=== PATIENT | female | born 1970 | race Caucasian/White ===

== ENCOUNTER 2019-02-22 08:00 | Inpatient (IN) | payer OTHER ==
[2019-02-24 07:11] VITALS: BMI 34.4
[2019-02-24] MEDS ORDERED: DESFLURANE GAS 240 ML BOTTLE IH ONE (07:46)
[2019-02-24] MEDS ORDERED: VANCOMYCIN 1,000 MG VIAL (RESTRICTED TO ID ONLY) ONE ×2 (07:59→09:19)
[2019-02-24] MEDS ORDERED: GENTAMICIN SO4 80 MG/2 ML VIAL ONE (07:59)
[2019-02-24] MEDS ORDERED: THROMBIN (BOVINE) 20,000 UNIT VIAL TP ONE (07:59)
--- NOTE | 2019-02-24 08:01 | HP ---
History & Physical Update - History History: No Change - Physical Physical: No Change - Assessment Assessment: No Change - Plan Plan: No Change (No change since visit with Dr Nelson on 02/18/19)
[2019-02-24] MEDS ORDERED: PROPOFOL 20 ML ONE ×3 (08:08→08:49)
[2019-02-24] MEDS ORDERED: MIDAZOLAM HCL 2 MG/2 ML SINGLE DOSE VIAL ONE (08:08)
[2019-02-24] MEDS ORDERED: ROCURONIUM BROMIDE 50 MG/5 ML VIAL ONE ×2 (08:08→09:36)
[2019-02-24] MEDS ORDERED: LIDOCAINE HCL/PF 2% SDV 5ML VIAL ONE ×2 (08:09→08:50)
[2019-02-24] MEDS ORDERED: SCOPOLAMINE HYDROBROMIDE 1 PATCH PATCH.TD72 ONE (08:10)
[2019-02-24] MEDS ORDERED: DEXAMETHASONE SOD PHOSPHATE 4 MG/1 ML VIAL IVPUSH ONE (08:13)
[2019-02-24] MEDS ORDERED: PROMETHAZINE HCL 25 MG/1 ML VIAL IVPB PRN (08:13)
[2019-02-24] MEDS ORDERED: LACTATED RINGERS SOLUTION 1,000 ML IV SCH (08:15)
[2019-02-24] MEDS ORDERED: HYDROmorphone *PCA* 10MG/50ML DISP.SYRIN PCA SCH (08:15)
[2019-02-24] MEDS ORDERED: MORPHINE 5 MG/10 ML AMP - FOR COMPOUNDING USE ONLY ONE (08:37)
[2019-02-24] MEDS ORDERED: SODIUM CHLORIDE 0.9% P/F 10 ML VIAL IJ ONE ×2 (09:13→09:19)
[2019-02-24] MEDS ORDERED: ceFAZolin SODIUM 1 GM VIAL ONE ×2 (09:13→17:19)
[2019-02-24] MEDS ORDERED: ceFAZolin SODIUM 1 GM VIAL IVPB ONE (09:18)
[2019-02-24] MEDS ORDERED: DEXAMETHASONE SOD PHOSPHATE 4 MG/1 ML VIAL ONE (09:20)
[2019-02-24] MEDS ORDERED: ONDANSETRON 4 MG/2 ML VIAL ONE ×2 (09:20→17:29)
[2019-02-24] MEDS ORDERED: VANCOMYCIN 1,000 MG VIAL (RESTRICTED TO ID ONLY) IVPB ONE (09:22)
[2019-02-24] MEDS ORDERED: GELATIN, ABSORBABLE 12-7MM EACH SPONGE TP ONE (09:31)
[2019-02-24] MEDS ORDERED: HYDROGEN PEROXIDE 473 ML PO ONE (09:31)
[2019-02-24] MEDS ORDERED: BACITRACIN 50,000 UNITS VIAL TP ONE (09:31)
[2019-02-24] MEDS ORDERED: THROMBIN (BOVINE) 5,000 UNIT VIAL TP ONE (09:31)
[2019-02-24] MEDS ORDERED: GENTAMICIN SO4 80 MG/2 ML VIAL IVPB ONE (09:31)
[2019-02-24] MEDS ORDERED: BUPIVACAINE HCL/PF 0.5% (5MG/ML) 10 ML VIAL ONE (10:31)
[2019-02-24] MEDS ORDERED: BUPIVACAINE LIPOSOME/PF (EXPAREL) 266 MG/20 ML VIAL ONE (10:31)
[2019-02-24] MEDS ORDERED: BUPIVACAINE LIPOSOME/PF (EXPAREL) 266 MG/20 ML VIAL NR ONE (11:04)
[2019-02-24] MEDS ORDERED: BUPIVACAINE HCL/PF 0.5% (5MG/ML) 10 ML VIAL IJ ONE (11:05)
[2019-02-24] MEDS ORDERED: NEOSTIGMINE METHYLSULFATE 0.5 MG/1 ML - 10 ML MDV ONE (11:28)
[2019-02-24] MEDS ORDERED: GLYCOPYRROLATE 0.2 MG/1 ML VIAL ONE (11:28)
[2019-02-24] MEDS ORDERED: diphenhydrAMINE HCL 25 MG CAPSULE (FP) PO PRN (12:27)
[2019-02-24] MEDS ORDERED: ACETAMINOPHEN 325 MG TABLET (FP) PO PRN (12:46)
--- NOTE | 2019-02-24 13:01 | OP ---
Operative Note - Note: Operative Date: 02/24/19 Pre-Operative Diagnosis: thoracic Spondylosis T11-T12 Operation: T11-T12 laminectomies with T11-T12 costoveterbral/transpedicular decompression and T11-T12 fusion with pedicle screws Post-Operative Diagnosis: Same as Pre-op Surgeon: Bryson Doyle Hot Mill Worker: Suly Babb Anesthesiologist/CLOTH PRINTER HELPER: Dae Stapleton Anesthesia: General, Spinal, Local Estimated Blood Loss (mls): 150 Drains & Tubes with Location: INOCENCIO right lumbar paravertebral Drains, Volume Out (mls): 300 (batres) Fluid Volume Replaced (mls): 1,500 Operative Report Dictated: Yes
[2019-02-24] MEDS ORDERED: HYDROmorphone *PCA* 10MG/50ML DISP.SYRIN PCA ONE (13:37)
--- NOTE | 2019-02-24 15:01 | HP ---
Admitting History and Physical - Admission Chief Complaint: came in for back surgery History of Present Illness: 48 yr old female saw her PMD on 02/18/19 came in for back surgery had MRI done last month show t11-t12 disc herniation with mass effect. PMH of HLD History Source: Medical Record - Past Medical History Cardiovascular: Yes: HTN, Hyperlipdemia ...LMP: 12/17/18 - Smoking History Smoking history: Never smoked - Alcohol/Substance Use Hx Alcohol Use: No (RARELY) Home Medications - Allergies Allergies/Adverse Reactions: Allergies Allergy/AdvReac Type Severity Reaction Status Date / Time No Known Drug Allergies Allergy Verified 02/23/19 14:54 - Home Medications Home Medications: Ambulatory Orders Rosuvastatin Calcium [Crestor] 5 mg PO DAILY 04/10/16 Ergocalciferol (Vitamin D2) [Vitamin D2] 50,000 unit PO WEEKLY 02/23/19 Review of Systems Unable to obtain ROS, reason: sleepy Physical Examination Vital Signs: Vital Signs Temperature 98.1 F 02/24/19 12:15 Pulse Rate 100 H 02/24/19 14:00 Respiratory Rate 18 02/24/19 14:00 Blood Pressure 145/81 02/24/19 14:00 O2 Sat by Pulse Oximetry (%) 99 02/24/19 14:00 patient seen in PACU after surgery she is sleepy able to respond to her name Constitutional: Yes: Calm Cardiovascular: Yes: Regular Rate and Rhythm, S1, S2 Respiratory: Yes: CTA Bilaterally Gastrointestinal: Yes: Normal Bowel Sounds, Soft Musculoskeletal: Yes: Other (INOCENCIO drain with red serosanginous drainage) Edema: No Neurological: Yes: Alert, Oriented Problem List - Problems (1) Thoracic lordosis Assessment/Plan: Operation: T11-T12 laminectomies with T11-T12 costoveterbral/transpedicular decompression and T11-T12 fusion with pedicle screws dilaudid organ teacher dvt ppx stool sfotner iv abx labs IN AM repeat thoracic ct ordered post op Code(s): M40.55 - LORDOSIS, UNSPECIFIED, THORACOLUMBAR REGION (2) HLD (hyperlipidemia) Assessment/Plan: crestor 5mg Code(s): E78.5 - HYPERLIPIDEMIA, UNSPECIFIED
[2019-02-24] MEDS: LACTATED RINGERS SOLUTION 1,000 ML/1,000 ML INFUS.BAG IV SCH (15:46)
[2019-02-24] MEDS ORDERED: CEFAZOLIN 1 GM in DEXTROSE 5%-WATER - 50 ML IVPB SCH (17:00)
[2019-02-24] MEDS: ONDANSETRON 4 MG/2 ML VIAL IVPUSH PRN (17:30)
[2019-02-24] MEDS ORDERED: CEFAZOLIN 2 GM in DEXTROSE 5%-WATER - 100 ML IVPB ONE (18:10)
[2019-02-24] MEDS ORDERED: CEFAZOLIN 2 GM/D5W 2 GM/50 ML ML IVPB ONE (18:23)
[2019-02-24] MEDS: DOCUSATE SODIUM 100 MG CAPSULE (FP) PO SCH ×2 (18:58→21:30)
[2019-02-24] MEDS: HEPARIN NA (PORCINE) 5,000 UNITS/ML 1ML VIAL SQ SCH (21:30)
[2019-02-25] MEDS: CEFAZOLIN 1 GM/D5W 1 GM/50 ML BAG IVPB SCH ×3 (01:26→18:07)
[2019-02-25] MEDS: HEPARIN NA (PORCINE) 5,000 UNITS/ML 1ML VIAL SQ SCH ×3 (05:29→21:27)
[2019-02-25] MEDS: DOCUSATE SODIUM 100 MG CAPSULE (FP) PO SCH ×3 (05:29→21:27)
[2019-02-25 06:39] LABS: HEMATOCRIT 31.4 % (32.4-45.2); HEMOGLOBIN 10.6 GM/dL (10.7-15.3); MCHC 33.8 g/dl (32.0-36.0); MEAN CELL VOLUME 91.8 fl (80-96); MEAN PLT VOLUME 8.2 fl (7.5-11.1); PLATELET COUNT 206 K/MM3 (134-434); RBC 3.42 M/mm3 (3.60-5.2); RDW 13.9 % (11.6-15.6); WHITE BLOOD COUNT 15.3 K/mm3 (4.0-10.0)
[2019-02-25 07:22] LABS: CALCIUM 8.3 mg/dL (8.5-10.1); CREATININE 0.9 mg/dL (0.55-1.3)
--- NOTE | 2019-02-25 08:05 | PN ---
Progress Note (short form) - Note Progress Note: Post op day#1.S/P T11-T12 posterior decompression with fusion under GA with intrathical duramorph and TLIP block by the surgeon uneventful.Patient stable and does not /o pain as of now.No any anesthesia related problem.Patient Dc from the anesthesia care.
[2019-02-25] MEDS: FOLIC ACID 1 MG TABLET (FP) PO SCH (10:21)
[2019-02-25] MEDS: FERROUS SO4 325 MG TABLET (FP) PO SCH ×2 (10:21→10:50)
--- NOTE | 2019-02-25 10:24 | PN ---
Progress Note (short form) - Note Progress Note: POD1, s/p T11-T12 laminectomies with T11-T12 costoveterbral/transpedicular decompression and T11-T12 fusion with pedicle screws Pt seen and examined. States she is feeling "Okay". Endorses some pain with movement. Has not been oob yet. Tolerating clears. Lang removed this AM. Drain in place. Denies cp/sob, n/v/d, calf pain. Vital Signs Temp 98.3 F 02/25/19 06:00 Pulse 66 02/25/19 06:00 Resp 18 02/25/19 06:00 BP 110/66 02/25/19 06:00 Pulse Ox 98 02/24/19 21:00 Intake & Output 02/24/19 02/24/19 02/25/19 11:59 23:59 11:59 Intake Total 1500 1745 1105 Output Total 475 1225 460 Balance 1025 520 645 Intake: IV 1500 1625 875 LACTATED RINGERS SOLUTION 625 875 1,000 ml In 1,000 ml @ 125 mls/hr IV ASDIR CLAIRE Rx#:[id number] IVPB 50 Oral 120 180 Output: Drainage 125 60 Right Lower Back 50 60 Urine 325 1100 400 Lang 400 400 Estimated Blood Loss 150 Other: Voiding Method Indwelling Catheter Bedpan Bowel Movement No No CBC, BMP 02/25/19 06:00 02/25/19 06:00 Gen: awake, alert, nad Resp: Unlabored on RA Back: dressing c/d/i, drain in place with minimal serosanguinous output, tubing stripped. Neuro: b/l le's 5/5 dorsi/plantar flexion, 5/5 hip flex/ext. SILT b/l les. Feet warm A/P: 48 y/o F w/ PMHx hld, thoracic spondylosis, now POD1, s/p T11-T12 laminectomies with T11-T12 costoveterbral/transpedicular decompression and T11- T12 fusion with pedicle screws. Low grade fever overnight (99.9), remainder of VSS Labs reviewed. Alexey output 60ml overnight -Pain regimen with Oxycodone 5/10mg q4hrs prn, Ofirmev 1g q6hrs scheduled, Dilaudid 1mg q6hrs prn BTP -TOV, Check bladder scan after 1st void -Keep drain in place, monitor and record output -Continue Ancef 1g q8hrs while drain in place -DVT prophylaxis with Heparin 5000units sq q8hrs, scds -OOB with PT -Bowel regimen -Advance diet as tolerated -VS per protocol -Neurochecks per protocol d/w attending Dr Cerda
[2019-02-25] MEDS: ACETAMINOPHEN 1000 MG/100 ML VIAL (NON FORMULARY) IVPB SCH ×3 (10:41→21:27)
--- NOTE | 2019-02-25 10:44 | PN ---
Progress Note (short form) - Note Progress Note: Overall doing reasonably well. INOCENCIO output as expected. - OOB with PT - Incentive Spirometer - Check post void residual - Pain management
[2019-02-25] MEDS: RANITIDINE HCL 150 MG TABLET (FP) PO PRN (10:49)
[2019-02-25] MEDS ORDERED: oxyCODONE HCL 5 MG TABLET PO PRN (11:00)
[2019-02-25] MEDS ORDERED: HYDROmorphone HCL/PF 1 MG/ML AMP IVPB PRN (11:50)
--- NOTE | 2019-02-25 12:07 | PN ---
Progress Note, Physician Chief Complaint: patient seen and examined feels better today sat in chair - Current Medication List Current Medications: Active Medications Acetaminophen (Tylenol -) 1,000 mg PO Q6H PRN PRN Reason: PAIN OR FEVER Acetaminophen (Ofirmev Injection -) 1,000 mg IVPB Q6H [facility] Stop: 02/26/19 04:16 Last Admin: 02/25/19 10:41 Dose: 1,000 mg Diphenhydramine HCl (Benadryl -) 25 mg PO Q6H PRN PRN Reason: FOR ITCHING Last Admin: 02/25/19 04:11 Dose: 25 mg Docusate Sodium (Colace -) 100 mg PO TID [facility] Last Admin: 02/25/19 05:29 Dose: 100 mg Ferrous Sulfate (Feosol -) 325 mg PO DAILY@0800 [facility] Last Admin: 02/25/19 10:50 Dose: Not Given Folic Acid (Folic Acid -) 1 mg PO DAILY [facility] Last Admin: 02/25/19 10:21 Dose: 1 mg Heparin Sodium (Porcine) (Heparin -) 5,000 unit SQ TID [facility] Last Admin: 02/25/19 05:29 Dose: 5,000 unit Hydromorphone HCl (Dilaudid Amp -) 1 mg IVPB Q6H PRN PRN Reason: PAIN LEVEL 7 - 10 Lactated Ringer's (Lactated Ringers Solution) 1,000 ml in 1,000 mls @ 125 mls/ hr IV ASDIR [facility] Last Admin: 02/24/19 15:46 Dose: 400 mls Cefazolin Sodium (Ancef 1 Gm Premixed Ivpb -) 1 gm in 50 mls @ 100 mls/hr IVPB Q8H-IV [facility] Last Admin: 02/25/19 10:22 Dose: 100 mls/hr Ondansetron HCl (Zofran Injection) 4 mg IVPUSH Q4H PRN PRN Reason: NAUSEA AND/OR VOMITING Last Admin: 02/24/19 17:30 Dose: 4 mg Oxycodone HCl (Roxicodone -) 5 mg PO Q4H PRN PRN Reason: PAIN LEVEL 1-5 Oxycodone HCl (Roxicodone -) 10 mg PO Q4H PRN PRN Reason: PAIN LEVEL 6-10 Ranitidine HCl (Zantac -) 150 mg PO DAILY PRN PRN Reason: INDIGESTION Last Admin: 02/25/19 10:49 Dose: 150 mg - Objective Vital Signs: Vital Signs Temperature 98.5 F 02/25/19 10:00 Pulse Rate 62 02/25/19 10:00 Respiratory Rate 18 02/25/19 10:00 Blood Pressure 108/66 02/25/19 10:00 O2 Sat by Pulse Oximetry (%) 98 02/24/19 21:00 Constitutional: Yes: Calm Cardiovascular: Yes: Regular Rate and Rhythm, S1, S2 Respiratory: Yes: CTA Bilaterally Gastrointestinal: Yes: Normal Bowel Sounds, Soft Musculoskeletal: Yes: Other (drain with drainage) Edema: No Labs: CBC, BMP 02/25/19 06:00 02/25/19 06:00 Problem List - Problems (1) Thoracic lordosis Assessment/Plan: Operation: T11-T12 laminectomies with T11-T12 costoveterbral/transpedicular decompression and T11-T12 fusion with pedicle screws dvt ppx stool sfotner incentive spirometer Code(s): M40.55 - LORDOSIS, UNSPECIFIED, THORACOLUMBAR REGION (2) HLD (hyperlipidemia) Assessment/Plan: crestor 5mg Code(s): E78.5 - HYPERLIPIDEMIA, UNSPECIFIED
[2019-02-25] MEDS ORDERED: SUMAtriptan SUCCINATE 25 MG TABLET PO PRN (13:33)
[2019-02-25] MEDS: oxyCODONE HCL 5 MG TABLET PO PRN (14:41)
[2019-02-25] MEDS: LACTATED RINGERS SOLUTION 1,000 ML/1,000 ML INFUS.BAG IV SCH (14:46)
[2019-02-25] MEDS: HYDROmorphone HCl 2 MG/ML VIAL IVPB PRN (19:01)
[2019-02-26] MEDS: HYDROmorphone HCl 2 MG/ML VIAL IVPB PRN ×2 (02:09→21:09)
[2019-02-26] MEDS: CEFAZOLIN 1 GM/D5W 1 GM/50 ML BAG IVPB SCH ×3 (02:10→17:53)
[2019-02-26] MEDS: ACETAMINOPHEN 1000 MG/100 ML VIAL (NON FORMULARY) IVPB SCH (05:35)
[2019-02-26] MEDS: oxyCODONE HCL 5 MG TABLET PO PRN ×2 (05:36→11:08)
[2019-02-26] MEDS: HEPARIN NA (PORCINE) 5,000 UNITS/ML 1ML VIAL SQ SCH ×3 (05:36→21:10)
[2019-02-26] MEDS: DOCUSATE SODIUM 100 MG CAPSULE (FP) PO SCH ×3 (05:37→21:10)
[2019-02-26] MEDS: FERROUS SO4 325 MG TABLET (FP) PO SCH (08:53)
[2019-02-26] MEDS: FOLIC ACID 1 MG TABLET (FP) PO SCH (10:26)
[2019-02-26] MEDS: LACTATED RINGERS SOLUTION 1,000 ML/1,000 ML INFUS.BAG IV SCH ×2 (10:27→21:10)
--- NOTE | 2019-02-26 10:46 | PN ---
Progress Note, Physician - Current Medication List Current Medications: Active Medications Acetaminophen (Tylenol -) 1,000 mg PO Q6H PRN PRN Reason: PAIN OR FEVER Diphenhydramine HCl (Benadryl -) 25 mg PO Q6H PRN PRN Reason: FOR ITCHING Last Admin: 02/25/19 04:11 Dose: 25 mg Docusate Sodium (Colace -) 100 mg PO TID [facility] Last Admin: 02/26/19 05:37 Dose: 100 mg Ferrous Sulfate (Feosol -) 325 mg PO DAILY@0800 [facility] Last Admin: 02/26/19 08:53 Dose: 325 mg Folic Acid (Folic Acid -) 1 mg PO DAILY [facility] Last Admin: 02/26/19 10:26 Dose: 1 mg Heparin Sodium (Porcine) (Heparin -) 5,000 unit SQ TID [facility] Last Admin: 02/26/19 05:36 Dose: 5,000 unit Hydromorphone HCl (Dilaudid Vial -) 1 mg IVPB Q6H PRN PRN Reason: PAIN LEVEL 7 - 10 Last Admin: 02/26/19 02:09 Dose: 1 mg Lactated Ringer's (Lactated Ringers Solution) 1,000 ml in 1,000 mls @ 125 mls/ hr IV ASDIR [facility] Last Admin: 02/26/19 10:27 Dose: 125 mls/hr Cefazolin Sodium (Ancef 1 Gm Premixed Ivpb -) 1 gm in 50 mls @ 100 mls/hr IVPB Q8H-IV [facility] Last Admin: 02/26/19 10:27 Dose: 100 mls/hr Ondansetron HCl (Zofran Injection) 4 mg IVPUSH Q4H PRN PRN Reason: NAUSEA AND/OR VOMITING Last Admin: 02/24/19 17:30 Dose: 4 mg Oxycodone HCl (Roxicodone -) 5 mg PO Q4H PRN PRN Reason: PAIN LEVEL 1-5 Oxycodone HCl (Roxicodone -) 10 mg PO Q4H PRN PRN Reason: PAIN LEVEL 6-10 Last Admin: 02/26/19 05:36 Dose: 10 mg Ranitidine HCl (Zantac -) 150 mg PO DAILY PRN PRN Reason: INDIGESTION Last Admin: 02/25/19 10:49 Dose: 150 mg Sumatriptan Succinate (Imitrex -) 25 mg PO DAILY PRN PRN Reason: HEADACHE - Objective Vital Signs: Vital Signs Temperature 98.6 F 02/26/19 06:00 Pulse Rate 79 02/26/19 06:00 Respiratory Rate 18 02/26/19 06:00 Blood Pressure 136/79 02/26/19 06:00 O2 Sat by Pulse Oximetry (%) 96 02/25/19 20:42 Cardiovascular: Yes: Regular Rate and Rhythm, Murmur Respiratory: Yes: Regular, CTA Bilaterally Gastrointestinal: Yes: Normal Bowel Sounds, Soft Edema: No Labs: CBC, BMP 02/25/19 06:00 02/25/19 06:00 Problem List - Problems (1) Dizziness Assessment/Plan: labs patient monitor Code(s): R42 - DIZZINESS AND GIDDINESS (2) HLD (hyperlipidemia) Assessment/Plan: statin Code(s): E78.5 - HYPERLIPIDEMIA, UNSPECIFIED (3) Thoracic lordosis Assessment/Plan: Operation: T11-T12 laminectomies with T11-T12 costoveterbral/transpedicular decompression and T11-T12 fusion with pedicle screws dvt ppx stool sfotner incentive spirometer Code(s): M40.55 - LORDOSIS, UNSPECIFIED, THORACOLUMBAR REGION (4) Murmur Assessment/Plan: echo --maybe done as outpatient Code(s): R01.1 - CARDIAC MURMUR, UNSPECIFIED
[2019-02-26 12:03] LABS: BASO % 0.3 % (0-2.0); EOS % 1.3 % (0-4.5); HEMATOCRIT 32.4 % (32.4-45.2); HEMOGLOBIN 10.8 GM/dL (10.7-15.3); LYMPH % 17.6 % (8-40); MCHC 33.4 g/dl (32.0-36.0); MEAN CELL VOLUME 92.7 fl (80-96); MEAN PLT VOLUME 8.3 fl (7.5-11.1); NEUT % 72.8 % (42.8-82.8); PLATELET COUNT 182 K/MM3 (134-434); RDW 14.1 % (11.6-15.6); WHITE BLOOD COUNT 11.4 K/mm3 (4.0-10.0)
[2019-02-26 12:27] LABS: ALBUMIN 3.2 g/dl (3.4-5.0); ALK PHOS 81 U/L (45-117); ANION GAP 5 MMOL/L (8-16); BILIRUBIN,TOTAL 0.6 mg/dL (0.2-1); BLOOD UREA NITROGEN 6 mg/dL (7-18); CALCIUM 7.7 mg/dL (8.5-10.1); CHLORIDE 102 mmol/L (98-107); CO2 30 mmol/L (21-32); CREATININE 0.8 mg/dL (0.55-1.3); GLUCOSE,RANDOM 107 mg/dL (74-106); POTASSIUM 3.6 mmol/L (3.5-5.1); SGOT/AST 97 U/L (15-37); SGPT/ALT 117 U/L (13-61); SODIUM 137 mmol/L (136-145); TOT PROT 5.5 g/dl (6.4-8.2)
[2019-02-26] MEDS: ONDANSETRON 4 MG/2 ML VIAL IVPUSH PRN ×2 (17:54→21:15)
[2019-02-27] MEDS: oxyCODONE HCL 5 MG TABLET PO PRN (00:53)
[2019-02-27] MEDS: CEFAZOLIN 1 GM/D5W 1 GM/50 ML BAG IVPB SCH ×3 (01:06→17:01)
[2019-02-27] MEDS: HYDROmorphone HCl 2 MG/ML VIAL IVPB PRN (04:19)
[2019-02-27] MEDS: HEPARIN NA (PORCINE) 5,000 UNITS/ML 1ML VIAL SQ SCH ×3 (05:29→21:32)
[2019-02-27] MEDS: DOCUSATE SODIUM 100 MG CAPSULE (FP) PO SCH ×3 (05:30→21:32)
[2019-02-27] MEDS: ONDANSETRON 4 MG/2 ML VIAL IVPUSH PRN (05:56)
[2019-02-27] MEDS: RANITIDINE HCL 150 MG TABLET (FP) PO PRN (08:38)
[2019-02-27] MEDS: FERROUS SO4 325 MG TABLET (FP) PO SCH (08:39)
[2019-02-27] MEDS ORDERED: PT OWN MED DRAWER 7, Y5N ONE (09:22)
[2019-02-27] MEDS: FOLIC ACID 1 MG TABLET (FP) PO SCH (09:24)
[2019-02-27] MEDS ORDERED: ONDANSETRON 4 MG/2 ML VIAL IVPUSH PRN (09:55)
--- NOTE | 2019-02-27 09:55 | PN ---
Progress Note, Physician History of Present Illness: C/O NAUSEA NO ABD PAIN NUMBNESS OF RIGHT LEG BUT NO WEAKNESS - Current Medication List Current Medications: Active Medications Acetaminophen (Tylenol -) 1,000 mg PO Q6H PRN PRN Reason: PAIN OR FEVER Diphenhydramine HCl (Benadryl -) 25 mg PO Q6H PRN PRN Reason: FOR ITCHING Last Admin: 02/25/19 04:11 Dose: 25 mg Docusate Sodium (Colace -) 100 mg PO TID [facility] Last Admin: 02/27/19 05:30 Dose: 100 mg Ferrous Sulfate (Feosol -) 325 mg PO DAILY@0800 [facility] Last Admin: 02/27/19 08:39 Dose: Not Given Folic Acid (Folic Acid -) 1 mg PO DAILY [facility] Last Admin: 02/27/19 09:24 Dose: 1 mg Heparin Sodium (Porcine) (Heparin -) 5,000 unit SQ TID [facility] Last Admin: 02/27/19 05:29 Dose: 5,000 unit Lactated Ringer's (Lactated Ringers Solution) 1,000 ml in 1,000 mls @ 125 mls/ hr IV ASDIR [facility] Last Admin: 02/26/19 21:10 Dose: Not Given Cefazolin Sodium (Ancef 1 Gm Premixed Ivpb -) 1 gm in 50 mls @ 100 mls/hr IVPB Q8H-IV [facility] Last Admin: 02/27/19 09:23 Dose: 100 mls/hr Oxycodone HCl (Roxicodone -) 5 mg PO Q4H PRN PRN Reason: PAIN LEVEL 1-5 Oxycodone HCl (Roxicodone -) 10 mg PO Q4H PRN PRN Reason: PAIN LEVEL 6-10 Last Admin: 02/27/19 00:53 Dose: 10 mg Ranitidine HCl (Zantac -) 150 mg PO DAILY PRN PRN Reason: INDIGESTION Last Admin: 02/27/19 08:38 Dose: 150 mg Sumatriptan Succinate (Imitrex -) 25 mg PO DAILY PRN PRN Reason: HEADACHE - Objective Vital Signs: Vital Signs Temperature 99.0 F 02/27/19 05:08 Pulse Rate 78 02/27/19 05:08 Respiratory Rate 20 02/27/19 05:08 Blood Pressure 132/82 02/27/19 05:08 O2 Sat by Pulse Oximetry (%) 94 L 02/26/19 21:00 Cardiovascular: Yes: Regular Rate and Rhythm Respiratory: Yes: Regular, CTA Bilaterally Gastrointestinal: Yes: Normal Bowel Sounds, Soft. No: Tenderness Edema: No Labs: CBC, BMP 02/26/19 11:20 02/26/19 11:20 Problem List - Problems (1) Dizziness Assessment/Plan: RESOLVED labs NOTED ekg NSR monitor NO ARRYTHMIA Code(s): R42 - DIZZINESS AND GIDDINESS (2) HLD (hyperlipidemia) Assessment/Plan: statin Code(s): E78.5 - HYPERLIPIDEMIA, UNSPECIFIED (3) Thoracic lordosis Assessment/Plan: Operation: T11-T12 laminectomies with T11-T12 costoveterbral/transpedicular decompression and T11-T12 fusion with pedicle screws dvt ppx stool sfotner incentive spirometer PARESTHESIA NS FOLLOW UP Code(s): M40.55 - LORDOSIS, UNSPECIFIED, THORACOLUMBAR REGION (4) Murmur Assessment/Plan: echo --maybe done as outpatient Code(s): R01.1 - CARDIAC MURMUR, UNSPECIFIED (5) Nausea Assessment/Plan: MAYBE DUE TO ANESTHESIA AND PAIN MEDS ZOFRAN Code(s): R11.0 - NAUSEA
[2019-02-27] MEDS: PANTOPRAZOLE SODIUM 40 MG VIAL IVPUSH SCH (10:50)
[2019-02-27] MEDS ORDERED: SODIUM PHOSPHATE/NA BIPHOS 133 ML ENEMA RC ONE (11:00)
--- NOTE | 2019-02-27 12:32 | EKG ---
Test Reason : Blood Pressure : / mmHG Vent. Rate : 072 BPM Atrial Rate : 072 BPM P-R Int : 144 ms QRS Dur : 086 ms QT Int : 394 ms P-R-T Axes : 036 013 008 degrees QTc Int : 431 ms NORMAL SINUS RHYTHM NORMAL ECG WHEN COMPARED WITH ECG OF 11-FEB-2010 10:34, NO SIGNIFICANT CHANGE WAS FOUND Confirmed by ALISTAIR WILCOX MD ([id number]) on 02/27/2019 12:31:58 PM Referred By: Bryson Doyle Confirmed By:ALISTAIR WILCOX MD
[2019-02-27] MEDS: ACETAMINOPHEN 500 MG TABLET (FP) PO PRN ×2 (15:40→21:32)
[2019-02-28] MEDS ORDERED: oxyCODONE HCL 5 MG TABLET PO ONE (01:15)
[2019-02-28] MEDS ORDERED: ACETAMINOPHEN 325 MG TABLET (FP) PO ONE (01:15)
[2019-02-28] MEDS: CEFAZOLIN 1 GM/D5W 1 GM/50 ML BAG IVPB SCH ×3 (01:23→18:07)
[2019-02-28] MEDS: HEPARIN NA (PORCINE) 5,000 UNITS/ML 1ML VIAL SQ SCH ×3 (05:43→21:13)
[2019-02-28] MEDS: DOCUSATE SODIUM 100 MG CAPSULE (FP) PO SCH ×3 (05:43→21:13)
[2019-02-28] MEDS: ACETAMINOPHEN 500 MG TABLET (FP) PO PRN ×2 (05:48→23:47)
--- NOTE | 2019-02-28 08:24 | PN ---
Progress Note (short form) - Note Progress Note: surgery POD #4 T11-T12 laminectomies with T11-T12 costoveterbral/transpedicular decompression and T11-T12 fusion with pedicle screws Patient seen and examined at bed still c/o b/l LE radicular pain in hips and thighs> LE, R>L, She has been OOB with PT and ambulating to the door. She is tolerating her diet, voiding and denies any CP, SOB, N/V, fever or chills. She denies any saddle anesthesia or groin pain. CBC, BMP 02/28/19 10:56 Vital Signs Temp 98.2 F 02/28/19 06:00 Pulse 71 02/28/19 06:00 Resp 20 02/28/19 06:00 BP 140/56 L 02/28/19 06:00 Pulse Ox 96 02/27/19 21:00 Intake & Output 02/27/19 02/27/19 02/28/19 11:59 23:59 11:59 Intake Total 995 900 50 Output Total 1050 1840 Balance -55 -940 50 Intake: IV 825 500 LACTATED RINGERS SOLUTION 825 500 1,000 ml In 1,000 ml @ 125 mls/hr IV ASDIR CLAIRE Rx#:[id number] IVPB 50 100 50 Oral 120 300 Output: Drainage 40 Right Lower Back 40 Urine 1050 1800 Void 1050 1800 Other: Voiding Method Bedside Commode Bedside Commode # Unmeasured Voids Straight Cath 4 Void 1 Bowel Movement Yes Yes # Bowel Movements 2 PE: A&ox3, NAD unlabored resp on RA Incision c/d/i with surrounding tissue intact- small linear skin tear right lumbar paravetebral area where tegaderm was (versitlie placed), no tracking erythema, edema, evidence of collection or d/c, INOCENCIO drain removed with tip fully intact, drain site clean and dry with no active d/c-pressure dressing applied B/L LE compartments soft, supple and non-tender with +DP pulses and 5/5 dorsi/ plantar flexion b/l LE Problem List - Problems (1) S/P fusion of thoracic spine Assessment/Plan: POD #4 thoracic decompression and fusion with b/l LE radiculopathy R>L- appropriate to status. 1) Focus on PT today-rehab vs home. will follow PT recommendations 2) Continue DVT prophylaxis 3) OOB as tolerated up to chair for meals 4) Encourage daily IS 5) D/c planning for today 6) Good bowel regimen Evaluation and plan discussed with Dr Doyle Code(s): Z98.1 - ARTHRODESIS STATUS
[2019-02-28] MEDS: traMADol HCL 50 MG TABLET PO PRN ×3 (09:19→21:13)
[2019-02-28] MEDS: PANTOPRAZOLE SODIUM 40 MG VIAL IVPUSH SCH (09:22)
[2019-02-28] MEDS ORDERED: SENNOSIDES/DOCUSATE COMBO (SENNA PLUS) TABLET (UD) PO PRN (10:47)
--- NOTE | 2019-02-28 10:49 | DS ---
"Physical Examination Vital Signs: Vital Signs Temperature 98.2 F 02/28/19 06:00 Pulse Rate 71 02/28/19 06:00 Respiratory Rate 20 02/28/19 06:00 Blood Pressure 140/56 L 02/28/19 06:00 O2 Sat by Pulse Oximetry (%) 96 02/27/19 21:00 Constitutional: Yes: Calm Cardiovascular: Yes: Regular Rate and Rhythm, S1, S2 Respiratory: Yes: CTA Bilaterally Gastrointestinal: Yes: Normal Bowel Sounds, Soft Edema: No Neurological: Yes: Alert, Oriented Labs: CBC, BMP 02/26/19 11:20 02/26/19 11:20 Discharge Summary Reason For Visit: THORACIC SPONDYLOSIS Current Active Problems Dizziness (Acute) HLD (hyperlipidemia) (Acute) Murmur (Acute) Nausea (Acute) S/P fusion of thoracic spine (Acute) Thoracic lordosis (Acute) Hospital Course: hief Complaint: came in for back surgery History of Present Illness: 48 yr old female saw her PMD on 02/18/19 came in for back surgery had MRI done last month show t11-t12 disc herniation with mass effect. PMH of HLD patient admitted to telemetry [facility] s/p lamiectomy -INOCENCIO drain removed thoracic Spondylosis T11-T12 Operation: T11-T12 laminectomies with T11-T12 costoveterbral/transpedicular decompression and T11-T12 fusion with pedicle screws pain control PT stool softners SNF for STR Condition: Stable - Instructions Diet, Activity, Other Instructions: Post Operative Instructions Physical Activity Resume your normal everyday activity as tolerated. No heavy lifting or exercise until seen by your surgeon. You may walk unlimited amounts and climb stairs. You may resume driving the car when you feel safe and comfortable behind the wheel and you are no longer wearing your brace. Do not operate a vehicle while taking narcotic medication. Brace You had back surgery, wear TLSO Brace whenever out of bed. May remove to sleep and shower. Wound Care Keep your incision clean, dry and covered at all times. Apply an occlusive dressing (Saran wrap or Tegaderm) when showering to avoid getting your incision wet. Do not submerge incision or apply ointments or creams. The shailesh will be removed in the office in 10-14 days post-op. Diet There are no dietary restrictions. Eat healthy, high-fiber foods. Drink 6-8 glasses of liquid each day. This will assist in keeping your bowels regular. Pain Management You may take Tylenol or acetaminophen. Any pain prescription medication ordered should be taken as prescribed for moderate to severe pain. Call Dr Stoddard for any of the following: Severe pain not relieved by medication Fever of 101 or higher Excessive bleeding or drainage on dressing Inability to urinate Any chest pain or shortness of breath, seek Emergency Care. Call the office to confirm a post-operative appointment for 2-3 weeks post-op Bryson Doyle MD [facility] [address] [place] [address] [facility] SURVEYING [employer]ODMAN: This report was requested by: Asad Bocanegra | Reference #: [id number] Disposition: HOME - Home Medications Comprehensive Discharge Medication List: Ambulatory Orders Rosuvastatin Calcium [Crestor] 5 mg PO DAILY 04/10/16 Ergocalciferol (Vitamin D2) [Vitamin D2] 50,000 unit PO WEEKLY 02/23/19 Docusate Sodium [Colace] 100 mg PO TID #30 capsule 02/28/19"
--- NOTE | 2019-02-28 10:52 | PN ---
Progress Note (short form) - Note Progress Note: patient complaining of pain in her right thigh and numbness of right leg [facility] on board pain control PT to see patient spoke to her about snf options wanttahira rodriguez- informed the SW Problem List - Problems (1) Thoracic lordosis Code(s): M40.55 - LORDOSIS, UNSPECIFIED, THORACOLUMBAR REGION (2) HLD (hyperlipidemia) Code(s): E78.5 - HYPERLIPIDEMIA, UNSPECIFIED
[2019-02-28 11:21] LABS: BASO % 0.6 % (0-2.0); HEMATOCRIT 31.6 % (32.4-45.2); HEMOGLOBIN 10.7 GM/dL (10.7-15.3); LYMPH % 25.1 % (8-40); MCH 31.1 pg (25.7-33.7); MCHC 33.8 g/dl (32.0-36.0); MEAN CELL VOLUME 91.9 fl (80-96); MEAN PLT VOLUME 7.9 fl (7.5-11.1); MONO % 8.4 % (3.8-10.2); NEUT % 61.9 % (42.8-82.8); PLATELET COUNT 234 K/MM3 (134-434); RBC 3.44 M/mm3 (3.60-5.2); RDW 14.2 % (11.6-15.6); WHITE BLOOD COUNT 9.6 K/mm3 (4.0-10.0)
[2019-02-28 11:53] LABS: ALBUMIN 2.9 g/dl (3.4-5.0); BILIRUBIN,TOTAL 0.4 mg/dL (0.2-1); CALCIUM 8.3 mg/dL (8.5-10.1); CREATININE 0.8 mg/dL (0.55-1.3); POTASSIUM 3.9 mmol/L (3.5-5.1); TOT PROT 5.4 g/dl (6.4-8.2)
--- NOTE | 2019-02-28 19:13 | PATH ---
Surgical Pathology Report Patient Name: ALEKSEY LEDESMA [facility]. Rec. #: [id number] /Age/Gender: 1970 (Age: 48) / F Account: [id number] Location: 4 PEDS/ADOL Taken: 02/24/2019 Received: 02/24/2019 Reported: 02/28/2019 Physicians: Bryson Stoddard M.D. Specimen(s) Received T11-12 DISC Clinical History Thoracic spondylosis, T11-T12 Final Diagnosis DISC, T11-T12, LAMINECTOMY, TRANSPEDICULAR DECOMPRESSION AND FUSION: BENIGN INTERVERTEBRAL DISC TISSUE AND BONE. Electronically Signed Meagan Gray M.D. Gross Description Received in formalin, labeled "T11-T12 disc" is a 2 x 1.8 x 0.5 cm portion of bony tissue. Showroom Sales Assistant tissue is submitted in one cassette after decalcification. AE/02/24/2019 ebram/02/24/2019
[2019-03-01] MEDS: CEFAZOLIN 1 GM/D5W 1 GM/50 ML BAG IVPB SCH ×3 (01:23→17:04)
[2019-03-01] MEDS: traMADol HCL 50 MG TABLET PO PRN ×2 (01:23→06:15)
[2019-03-01] MEDS: DOCUSATE SODIUM 100 MG CAPSULE (FP) PO SCH ×3 (06:15→21:04)
[2019-03-01] MEDS: HEPARIN NA (PORCINE) 5,000 UNITS/ML 1ML VIAL SQ SCH ×3 (06:15→21:03)
--- NOTE | 2019-03-01 09:22 | DS ---
"Physical Examination Vital Signs: Vital Signs Temperature 98.1 F 03/01/19 06:00 Pulse Rate 77 03/01/19 06:00 Respiratory Rate 20 03/01/19 06:00 Blood Pressure 149/82 03/01/19 06:00 O2 Sat by Pulse Oximetry (%) 96 02/28/19 21:00 Cardiovascular: Yes: Regular Rate and Rhythm Respiratory: Yes: Regular, CTA Bilaterally Gastrointestinal: Yes: Normal Bowel Sounds, Soft Labs: CBC, BMP 02/28/19 10:56 02/28/19 10:56 Discharge Summary Reason For Visit: THORACIC SPONDYLOSIS Current Active Problems Dizziness (Acute) HLD (hyperlipidemia) (Acute) Murmur (Acute) Nausea (Acute) S/P fusion of thoracic spine (Acute) Thoracic lordosis (Acute) Hospital Course: 48 yr old female saw her PMD on 02/18/19 came in for back surgery had MRI done last month show t11-t12 disc herniation with mass effect. PMH of HLD patient admitted to telemetry [facility] s/p lamiectomy -INOCENCIO drain removed thoracic Spondylosis T11-T12 Operation: T11-T12 laminectomies with T11-T12 costoveterbral/transpedicular decompression and T11-T12 fusion with pedicle screws pain control PT stool softners rodriguez for STR Numbness of right thigh NS aware pt add gabapentin Condition: Stable - Instructions Diet, Activity, Other Instructions: Post Operative Instructions Physical Activity Resume your normal everyday activity as tolerated. No heavy lifting or exercise until seen by your surgeon. You may walk unlimited amounts and climb stairs. You may resume driving the car when you feel safe and comfortable behind the wheel and you are no longer wearing your brace. Do not operate a vehicle while taking narcotic medication. Brace You had back surgery, wear TLSO Brace whenever out of bed. May remove to sleep and shower. Wound Care Keep your incision clean, dry and covered at all times. Apply an occlusive dressing (Saran wrap or Tegaderm) when showering to avoid getting your incision wet. Do not submerge incision or apply ointments or creams. The shailesh will be removed in the office in 10-14 days post-op. Diet There are no dietary restrictions. Eat healthy, high-fiber foods. Drink 6-8 glasses of liquid each day. This will assist in keeping your bowels regular. Pain Management You may take Tylenol or acetaminophen. Any pain prescription medication ordered should be taken as prescribed for moderate to severe pain. Call Dr Stoddard for any of the following: Severe pain not relieved by medication Fever of 101 or higher Excessive bleeding or drainage on dressing Inability to urinate Any chest pain or shortness of breath, seek Emergency Care. Call the office to confirm a post-operative appointment for 2-3 weeks post-op Bryson Doyle MD [facility] [address] [place] [address] [facility] [employer]UTION ARCHITECT: This report was requested by: Asad Bocanegra | Reference #: [id number] Disposition: VNS/HOME HEALTH CARE - Home Medications Comprehensive Discharge Medication List: Ambulatory Orders Rosuvastatin Calcium [Crestor] 5 mg PO DAILY 04/10/16 Ergocalciferol (Vitamin D2) [Vitamin D2] 50,000 unit PO WEEKLY 02/23/19 Docusate Sodium [Colace -] 100 mg PO TID capsule 02/28/19 Docusate Sodium [Colace] 100 mg PO TID #30 capsule 02/28/19 Ferrous Sulfate [Feosol] 325 mg PO DAILY@0800 ud 02/28/19 Folic Acid - 1 mg PO DAILY tablet 02/28/19 Ranitidine [Zantac -] 150 mg PO DAILY PRN tablet 02/28/19 Sennosides/Docusate Sodium [Pericolace -] 2 tablet PO HS PRN tablet 02/28/19 Sumatriptan Succinate [Imitrex -] 25 mg PO DAILY PRN tablet 02/28/19 Gabapentin 100 mg PO TID #30 capsule 03/01/19 oxyCODONE HCL [Roxicodone -] 5 mg PO Q6H PRN #30 tablet MDD 4 03/01/19"
[2019-03-01] MEDS: PANTOPRAZOLE SODIUM 40 MG VIAL IVPUSH SCH (10:06)
--- NOTE | 2019-03-01 10:07 | PN ---
Progress Note (short form) - Note Progress Note: surgery POD #5 T11-T12 laminectomies with T11-T12 costoveterbral/transpedicular decompression and T11-T12 fusion with pedicle screws Patient seen and examined states her b/l LE radicular pain in hips and thighs> LE, R>L is slightly improved. She has been OOB with PT did much better ambulating with PT yesterday. She is tolerating her diet, voiding and denies any CP, SOB, N/V, fever or chills. She denies any saddle anesthesia or groin pain. Vital Signs Temp 98.1 F 03/01/19 06:00 Pulse 77 03/01/19 06:00 Resp 20 03/01/19 06:00 BP 149/82 03/01/19 06:00 Pulse Ox 96 02/28/19 21:00 Intake & Output 02/28/19 02/28/19 03/01/19 11:59 23:59 11:59 Intake Total 50 900 Balance 50 900 Intake: IVPB 50 Oral 900 Other: Voiding Method Toilet Toilet # Unmeasured Voids Straight Cath 4 1 Void 1 Bowel Movement Yes No # Bowel Movements 2 PE: A&ox3, NAD unlabored resp on RA dressing c/d/i with surrounding tissue intact- small linear skin tear right lumbar paravetebral area versitlie placed, no tracking erythema, edema, evidence of collection or d/c, INOCENCIO drain site clean and dry with no active d/c- pressure dressing applied B/L LE compartments soft, supple and non-tender with +DP pulses and 5/5 dorsi/ plantar flexion b/l LE Problem List - Problems (1) S/P fusion of thoracic spine Assessment/Plan: POD #5 thoracic decompression and fusion with b/l LE radiculopathy R>L- appropriate to status. 1) Plan for d/c to [facility] today pending placement 2) Continue DVT prophylaxis 3) OOB as tolerated up to chair for meals 4) Encourage daily IS 5) Good bowel regimen Code(s): Z98.1 - ARTHRODESIS STATUS
[2019-03-01] MEDS: oxyCODONE HCL 5 MG TABLET PO PRN ×3 (12:12→23:12)
[2019-03-01] MEDS: GABAPENTIN 100 MG CAPSULE (FP) PO SCH ×2 (15:00→21:03)
[2019-03-01] MEDS ORDERED: SODIUM PHOSPHATE/NA BIPHOS 133 ML ENEMA RC ONE (20:00)
[2019-03-01] MEDS ORDERED: SENNOSIDES/DOCUSATE COMBO (SENNA PLUS) TABLET (UD) PO ONE (20:00)
[2019-03-02] MEDS: ACETAMINOPHEN 500 MG TABLET (FP) PO PRN ×2 (00:16→08:34)
[2019-03-02] MEDS: CEFAZOLIN 1 GM/D5W 1 GM/50 ML BAG IVPB SCH ×3 (02:02→17:22)
[2019-03-02] MEDS: HEPARIN NA (PORCINE) 5,000 UNITS/ML 1ML VIAL SQ SCH ×2 (05:17→15:01)
[2019-03-02] MEDS: GABAPENTIN 100 MG CAPSULE (FP) PO SCH ×2 (05:17→15:01)
[2019-03-02] MEDS: DOCUSATE SODIUM 100 MG CAPSULE (FP) PO SCH ×2 (05:17→15:01)
[2019-03-02] MEDS: oxyCODONE HCL 5 MG TABLET PO PRN ×3 (05:17→18:23)
[2019-03-02 08:37] LABS: ALBUMIN 2.9 g/dl (3.4-5.0); BILIRUBIN,TOTAL 0.7 mg/dL (0.2-1); CALCIUM 8.4 mg/dL (8.5-10.1); CREATININE 0.7 mg/dL (0.55-1.3); POTASSIUM 3.5 mmol/L (3.5-5.1); TOT PROT 5.6 g/dl (6.4-8.2)
[2019-03-02] MEDS: PANTOPRAZOLE SODIUM 40 MG VIAL IVPUSH SCH (09:42)
--- NOTE | 2019-03-02 13:52 | PN ---
Progress Note, Physician Chief Complaint: Thoracic Laminectomy and decompression History of Present Illness: s/p day #6-T11-T12 laminectomies with T11-T12 costoveterbral/transpedicular decompression and T11-T12 fusion with pedicle screws - Current Medication List Current Medications: Active Medications Acetaminophen (Tylenol -) 1,000 mg PO Q6H PRN PRN Reason: PAIN OR FEVER Last Admin: 03/02/19 08:34 Dose: 1,000 mg Diphenhydramine HCl (Benadryl -) 25 mg PO Q6H PRN PRN Reason: FOR ITCHING Last Admin: 02/25/19 04:11 Dose: 25 mg Docusate Sodium (Colace -) 100 mg PO TID [facility] Last Admin: 03/02/19 05:17 Dose: 100 mg Gabapentin (Neurontin -) 100 mg PO TID [facility] Last Admin: 03/02/19 05:17 Dose: 100 mg Heparin Sodium (Porcine) (Heparin -) 5,000 unit SQ TID [facility] Last Admin: 03/02/19 05:17 Dose: 5,000 unit Cefazolin Sodium (Ancef 1 Gm Premixed Ivpb -) 1 gm in 50 mls @ 100 mls/hr IVPB Q8H-IV [facility] Last Admin: 03/02/19 09:42 Dose: 100 mls/hr Ondansetron HCl (Zofran Injection) 4 mg IVPUSH Q6H PRN PRN Reason: NAUSEA Last Admin: 02/27/19 10:50 Dose: 4 mg Oxycodone HCl (Roxicodone -) 5 mg PO Q6H PRN PRN Reason: PAIN LEVEL 6-10 Last Admin: 03/02/19 12:49 Dose: 5 mg Pantoprazole Sodium (Protonix Iv) 40 mg IVPUSH DAILY [facility] Last Admin: 03/02/19 09:42 Dose: 40 mg Senna/Docusate Sodium (Pericolace -) 2 tablet PO HS [facility] - Objective Vital Signs: Vital Signs Temperature 98.4 F 03/02/19 08:44 Pulse Rate 79 03/02/19 08:44 Respiratory Rate 20 03/02/19 08:44 Blood Pressure 135/92 03/02/19 08:44 O2 Sat by Pulse Oximetry (%) 98 03/02/19 09:00 Constitutional: Yes: Well Nourished, No Distress, Calm, Other (mild pain) Cardiovascular: Yes: Regular Rate and Rhythm Respiratory: Yes: Regular Gastrointestinal: Yes: Normal Bowel Sounds, Soft Musculoskeletal: Yes: Muscle Weakness Extremities: Yes: Other (BLLE numbness) Edema: No Peripheral Pulses WNL: Yes Wound/Incision: Yes: Dressing Dry and Intact Neurological: Yes: Alert, Oriented, Numbness (BLLE) Psychiatric: Yes: Alert, Oriented Labs: CBC, BMP 02/28/19 10:56 03/02/19 07:00 Problem List - Problems (1) HLD (hyperlipidemia) Assessment/Plan: -Statin on hold due to elevated liver enzymes Code(s): E78.5 - HYPERLIPIDEMIA, UNSPECIFIED (2) S/P fusion of thoracic spine Assessment/Plan: -T11-T12 laminectomies with T11-T12 costoveterbral/transpedicular decompression and T11-T12 fusion with pedicle screws -Seen by surgery -Hesitancy and weakness noted with 1 person assist for ambulation, walking with walker, is a fall risk Code(s): Z98.1 - ARTHRODESIS STATUS (3) Elevated liver enzymes Assessment/Plan: -Monitor trend -U/S liver -Last MRI abd done in 2017 shows no hepatomegaly or fatty infiltration Code(s): R74.8 - ABNORMAL LEVELS OF OTHER SERUM ENZYMES Assessment/Plan See problem list Physical therapy Acute rehab at [facility] for insurance for peer to peer to get approval for acute rehab, awaiting call back.
[2019-03-02 14:43] VITALS: BP 132/86; PULSE 81; TEMP 98.1
[2019-03-02] MEDS ORDERED: SENNOSIDES/DOCUSATE COMBO (SENNA PLUS) TABLET (UD) PO SCH (22:00)
== END 2019-03-02 18:34 | disposition home health service (06) | DRG 460 ==
LOC: JSAMEDAYSX 02-24 06:40 → J4S 02-24 17:52
PROVIDERS: ADMIT Family Medicine; ATTEND Family Medicine
PROC: 0JX70ZB Transfer Back Subcutaneous Tissue and Fascia with Skin and Subcutaneous Tissue, Open Approach (ICD-10-PCS; 2019-02-24)
PROC: 01N80ZZ Release Thoracic Nerve, Open Approach (ICD-10-PCS; 2019-02-24)
PROC: B01BZZZ Fluoroscopy of Spinal Cord (ICD-10-PCS; 2019-02-24)
PROC: 0RG60J1 Fusion of Thoracic Vertebral Joint with Synthetic Substitute, Posterior Approach, Posterior Column, Open Approach (ICD-10-PCS; principal; 2019-02-24 08:00)
DX: M47.894 Other spondylosis, thoracic region (principal); M51.24 Other intervertebral disc displacement, thoracic region; E78.5 Hyperlipidemia, unspecified; R74.8 Abnormal levels of other serum enzymes; R42 Dizziness and giddiness; R11.0 Nausea; R01.1 Cardiac murmur, unspecified
CPT/HCPCS: 36415; 72128-TC; 76000-TC-FY; 80048; 80053; 82550; 82553; 84484; 84703; 85025; 85027; 86850; 86900; 86901; 88304-TC; 93005; 93010; 93970-TC; 94010; 94760; 97116-GP; 97162-GP; J0131; J1644

== ENCOUNTER 2019-04-11 06:05 | Inpatient (IN) | payer OTHER ==
[2019-04-08 11:16] VITALS: BMI 34.0
[2019-04-11] MEDS ORDERED: MORPHINE 5 MG/10 ML AMP - FOR COMPOUNDING USE ONLY ONE (07:17)
[2019-04-11] MEDS ORDERED: MIDAZOLAM HCL 2 MG/2 ML SINGLE DOSE VIAL ONE (07:17)
[2019-04-11] MEDS ORDERED: fentaNYL CITRATE 250 MCG/5 ML VIAL ONE (07:17)
[2019-04-11] MEDS ORDERED: ROCURONIUM BROMIDE 50 MG/5 ML SYRINGE ONE ×2 (07:18→09:43)
[2019-04-11] MEDS ORDERED: PROPOFOL 20 ML ONE (07:18)
[2019-04-11] MEDS ORDERED: LIDOCAINE HCL 1% EPINEPHRINE 1:200,000 30 ML VIAL (PF) ONE (07:28)
[2019-04-11] MEDS ORDERED: BUPIVACAINE HCL/PF 0.5% (5MG/ML) 10 ML VIAL ONE ×2 (07:29→08:09)
[2019-04-11] MEDS ORDERED: VANCOMYCIN 1,000 MG VIAL (RESTRICTED TO ID ONLY) ONE ×2 (07:30→10:09)
[2019-04-11] MEDS ORDERED: GENTAMICIN SO4 80 MG/2 ML VIAL ONE (07:31)
[2019-04-11] MEDS ORDERED: SCOPOLAMINE HYDROBROMIDE 1 PATCH PATCH.TD72 ONE (07:44)
[2019-04-11] MEDS ORDERED: THROMBIN (BOVINE) 20,000 UNIT VIAL TP ONE (08:10)
[2019-04-11] MEDS ORDERED: morphine SULFATE/PF 0.5 MG/ML (2cc Syringe - QUVA) IT ONE (08:15)
[2019-04-11] MEDS ORDERED: ceFAZolin SODIUM 1 GM VIAL ONE ×2 (08:38→17:17)
[2019-04-11] MEDS ORDERED: ceFAZolin SODIUM 1 GM VIAL IVPB ONE (08:50)
[2019-04-11] MEDS ORDERED: VANCOMYCIN 1,000 MG VIAL (RESTRICTED TO ID ONLY) IVPB ONE (09:14)
[2019-04-11] MEDS ORDERED: HYDROmorphone HCl 2 MG/ML VIAL ONE (10:01)
[2019-04-11] MEDS ORDERED: NEOSTIGMINE METHYLSULFATE 0.5 MG/ML - 10 ML MDV ONE (10:09)
[2019-04-11] MEDS ORDERED: GLYCOPYRROLATE 0.2 MG/1 ML VIAL ONE (10:09)
[2019-04-11] MEDS ORDERED: THROMBIN (BOVINE) 5,000 UNIT VIAL TP ONE (10:10)
[2019-04-11] MEDS ORDERED: BUPIVACAINE HCL/PF (5 MG/ML) 30 ML VIAL IJ ONE ×2 (10:10→11:11)
[2019-04-11] MEDS ORDERED: GELATIN, ABSORBABLE 12-7MM EACH SPONGE TP ONE (10:10)
[2019-04-11] MEDS ORDERED: BUPIVACAINE LIPOSOME/PF (EXPAREL) 266 MG/20 ML VIAL IJ ONE ×2 (10:11→11:11)
[2019-04-11] MEDS ORDERED: DEXAMETHASONE SOD PHOSPHATE 4 MG/1 ML VIAL ONE (10:12)
[2019-04-11] MEDS ORDERED: BUPIVACAINE HCL/PF 0.25% (2.5MG/ML) 10 ML VIAL ONE (10:19)
[2019-04-11] MEDS ORDERED: diphenhydrAMINE HCL 25 MG CAPSULE (FP) PO PRN (12:05)
--- NOTE | 2019-04-11 12:05 | HP ---
History & Physical Update - History History: No Change - Physical Physical: No Change - Assessment Assessment: No Change - Plan Plan: No Change (preop w/ Dr Shandra Nelson 04/04 no change in status or meds since preop visit)
[2019-04-11] MEDS ORDERED: ONDANSETRON 4 MG/2 ML VIAL IVPUSH PRN ×2 (12:12→12:17)
[2019-04-11] MEDS ORDERED: NALOXONE HCL 0.4 MG/ML VIAL IVPUSH PRN (12:12)
[2019-04-11] MEDS ORDERED: ACETAMINOPHEN 325 MG TABLET (FP) PO SCH (12:15)
[2019-04-11] MEDS ORDERED: SUMAtriptan SUCCINATE 25 MG TABLET PO PRN (12:17)
[2019-04-11] MEDS ORDERED: PROMETHAZINE HCL 25 MG/1 ML VIAL IVPB PRN (12:17)
[2019-04-11] MEDS ORDERED: ACETAMINOPHEN 1000 MG/100 ML VIAL (NON FORMULARY) IVPB SCH (12:30)
[2019-04-11] MEDS ORDERED: ERGOCALCIFEROL (VIT D2) 50,000 UNIT (1.25 MG) CAPSULE PO SCH (12:30)
[2019-04-11] MEDS ORDERED: LACTATED RINGERS SOLUTION 1,000 ML IV SCH (12:30)
--- NOTE | 2019-04-11 13:09 | PN ---
Progress Note, Physician Chief Complaint: L4-L5 Laminectomy History of Present Illness: Previous notes and events reviewed drowsy but responsive to verbal stimuli examined in PACU denies complaints of pain VS stable on monitor INOCENCIO drain with 50cc sanguinous output - Current Medication List Current Medications: Active Medications Acetaminophen (Tylenol -) 650 mg PO Q6HPO [facility] Acetaminophen (Ofirmev Injection -) 1,000 mg IVPB Q6H [facility] Stop: 04/12/19 06:31 Diphenhydramine HCl (Benadryl -) 25 mg PO Q6H PRN PRN Reason: FOR ITCHING Diphenhydramine HCl (Benadryl Injection -) 25 mg IVPUSH ONCE PRN PRN Reason: FOR ITCHING Docusate Sodium (Colace -) 100 mg PO TID [facility] Ergocalciferol (Drisdol -) 50,000 unit PO Mo [facility] Ferrous Sulfate (Feosol -) 325 mg PO DAILY [facility] Folic Acid (Folic Acid -) 1 mg PO DAILY [facility] Heparin Sodium (Porcine) (Heparin -) 5,000 unit SQ Q8H-IV [facility] Cefazolin Sodium (Ancef 1 Gm Premixed Ivpb -) 1 gm in 50 mls @ 100 mls/hr IVPB Q8H-IV [facility] Lactated Ringer's (Lactated Ringers Solution) 1,000 ml in 1,000 mls @ 125 mls/ hr IV ASDIR [facility] Naloxone HCl (Narcan -) 0.4 mg IVPUSH ONCE PRN PRN Reason: Sedation Ondansetron HCl (Zofran Injection) 4 mg IVPUSH Q6H PRN PRN Reason: NAUSEA Oxycodone HCl (Roxicodone -) 5 mg PO Q3H PRN PRN Reason: Mild Pain 1-3 Oxycodone HCl (Roxicodone -) 10 mg PO Q3H PRN PRN Reason: Moderate Pain 4-6 Oxycodone HCl (Oxycontin -) 10 mg PO BID [facility] Promethazine HCl (Phenergan Injection -) 12.5 mg IVPB Q6H PRN PRN Reason: NAUSEA-FOR RESCUE AFTER 15 MIN Ranitidine HCl (Zantac -) 150 mg PO DAILY [facility] Sumatriptan Succinate (Imitrex -) 25 mg PO DAILY PRN PRN Reason: HEADACHE - Objective Vital Signs: Vital Signs Temperature 98.0 F 04/11/19 06:52 Pulse Rate 88 04/11/19 06:52 Respiratory Rate 20 04/11/19 06:52 Blood Pressure 133/91 04/11/19 06:52 O2 Sat by Pulse Oximetry (%) 99 04/11/19 06:49 Constitutional: Yes: No Distress, Calm, Other (drowsy) Eyes: Yes: Conjunctiva Clear HENT: Yes: Atraumatic Neck: Yes: Supple Cardiovascular: Yes: Regular Rate and Rhythm Respiratory: Yes: Regular, CTA Bilaterally Gastrointestinal: Yes: Normal Bowel Sounds, Soft Genitourinary: Yes: Lang Present Musculoskeletal: Yes: Muscle Weakness Extremities: Yes: WNL Edema: No Wound/Incision: Yes: Other (INOCENCIO drain) Neurological: Yes: Alert, Oriented Psychiatric: Yes: Alert, Oriented Problem List - Problems (1) S/P lumbar laminectomy Assessment/Plan: -POD #0 L4-L5 laminectomy for decompression and fusion -INOCENCIO drain with 50cc Serosanguinous output -Incentive Spirometer -pain control with duramorph intrathecal -SCDs -Lumbar CT scan -stool softeners Code(s): Z98.890 - OTHER SPECIFIED POSTPROCEDURAL STATES Assessment/Plan see problem list dvt ppx
[2019-04-11] MEDS: ONDANSETRON 4 MG/2 ML VIAL IVPUSH PRN (13:32)
[2019-04-11] MEDS ORDERED: ONDANSETRON 4 MG/2 ML VIAL ONE (13:32)
[2019-04-11] MEDS ORDERED: ACETAMINOPHEN INJECTION 100 ML IVPB ONE (13:50)
[2019-04-11] MEDS ORDERED: CEFAZOLIN 1 GM/D5W 1 GM/50 ML BAG IVPB SCH ×2 (15:00→18:00)
[2019-04-11] MEDS: LACTATED RINGERS SOLUTION 1,000 ML/1,000 ML INFUS.BAG IV SCH (15:52)
[2019-04-11] MEDS ORDERED: diphenhydrAMINE HCL 25 MG CAPSULE (FP) PO ONE (16:45)
[2019-04-11] MEDS: DOCUSATE SODIUM 100 MG CAPSULE (FP) PO SCH ×2 (17:15→21:57)
[2019-04-11] MEDS: RANITIDINE HCL 150 MG TABLET (FP) PO SCH (17:15)
[2019-04-11] MEDS ORDERED: DEXTROSE 5%-WATER - 50 ML IVPB ONE (17:17)
[2019-04-11] MEDS: CEFAZOLIN 1 GM in DEXTROSE 5%-WATER - 50 ML IVPB SCH (17:18)
[2019-04-11] MEDS ORDERED: PT OWN MED DRAWER 7, Y5N ONE (21:22)
[2019-04-11] MEDS: oxyCODONE HCL 10 MG SUSTAINED ACTING TABLET PO SCH (21:56)
[2019-04-11] MEDS: ACETAMINOPHEN 1000 MG/100 ML VIAL (NON FORMULARY) IVPB SCH (21:59)
[2019-04-12] MEDS ORDERED: PT OWN MED DRAWER 7, Y5N ONE (02:18)
[2019-04-12] MEDS: ACETAMINOPHEN 1000 MG/100 ML VIAL (NON FORMULARY) IVPB SCH ×3 (02:44→15:33)
[2019-04-12] MEDS: CEFAZOLIN 1 GM in DEXTROSE 5%-WATER - 50 ML IVPB SCH ×2 (02:44→09:52)
[2019-04-12] MEDS: DOCUSATE SODIUM 100 MG CAPSULE (FP) PO SCH ×3 (07:05→21:55)
[2019-04-12] MEDS ORDERED: BENZOCAINE/MENTH/CETYLPYRD CL 1 EACH LOZENGE MM PRN (08:16)
--- NOTE | 2019-04-12 08:20 | PN ---
Progress Note, Physician Chief Complaint: pod#1 patient seen in telemetry awake alert mild distress post-op pain c/o dysphagia from intubation/extubation - Current Medication List Current Medications: Active Medications Acetaminophen (Ofirmev Injection -) 1,000 mg IVPB Q6H [facility] Stop: 04/12/19 14:01 Last Admin: 04/12/19 02:44 Dose: 1,000 mg Acetaminophen (Tylenol -) 650 mg PO Q6HPO [facility] Diphenhydramine HCl (Benadryl -) 25 mg PO Q6H PRN PRN Reason: FOR ITCHING Diphenhydramine HCl (Benadryl Injection -) 25 mg IVPUSH ONCE PRN PRN Reason: FOR ITCHING Docusate Sodium (Colace -) 100 mg PO TID [facility] Last Admin: 04/12/19 07:05 Dose: 100 mg Ergocalciferol (Drisdol -) 50,000 unit PO Mo [facility] Ferrous Sulfate (Feosol -) 325 mg PO DAILY [facility] Folic Acid (Folic Acid -) 1 mg PO DAILY [facility] Heparin Sodium (Porcine) (Heparin -) 5,000 unit SQ Q8H-IV [facility] Lactated Ringer's (Lactated Ringers Solution) 1,000 ml in 1,000 mls @ 125 mls/ hr IV ASDIR [facility] Last Admin: 04/11/19 15:52 Dose: 125 mls/hr Cefazolin Sodium 1 gm/ (Dextrose) 50 mls @ 100 mls/hr IVPB Q8H-IV [facility] Stop: 04/12/19 17:59 Last Admin: 04/12/19 02:44 Dose: 100 mls/hr Naloxone HCl (Narcan -) 0.4 mg IVPUSH ONCE PRN PRN Reason: Sedation Ondansetron HCl (Zofran Injection) 4 mg IVPUSH Q6H PRN PRN Reason: NAUSEA Last Admin: 04/11/19 13:32 Dose: 4 mg Oxycodone HCl (Roxicodone -) 5 mg PO Q3H PRN PRN Reason: Mild Pain 1-3 Oxycodone HCl (Roxicodone -) 10 mg PO Q3H PRN PRN Reason: Moderate Pain 4-6 Oxycodone HCl (Oxycontin -) 10 mg PO BID [facility] Last Admin: 04/11/19 21:56 Dose: 10 mg Ranitidine HCl (Zantac -) 150 mg PO DAILY [facility] Last Admin: 04/11/19 17:15 Dose: 150 mg Sumatriptan Succinate (Imitrex -) 25 mg PO DAILY PRN PRN Reason: HEADACHE - Objective Vital Signs: Vital Signs Temperature 99.0 F 04/12/19 06:00 Pulse Rate 69 04/12/19 06:00 Respiratory Rate 20 04/12/19 06:00 Blood Pressure 129/74 04/12/19 06:00 O2 Sat by Pulse Oximetry (%) 95 04/11/19 20:44 Constitutional: Yes: Mild Distress Eyes: Yes: WNL HENT: Yes: WNL Neck: Yes: WNL Cardiovascular: Yes: Regular Rate and Rhythm Respiratory: Yes: WNL Gastrointestinal: Yes: Soft Genitourinary: Yes: Lang Present Musculoskeletal: Yes: Muscle Pain Extremities: Yes: WNL Edema: Yes Edema: RUE: 1+ Peripheral Pulses WNL: Yes Integumentary: Yes: WNL Wound/Incision: Yes: Dressing Dry and Intact Neurological: Yes: Alert, Oriented, Other ...Motor Strength: LLE, RLE (weak) Psychiatric: Yes: WNL Assessment/Plan s/p L4-L5 laminectomy POD # 1 PAIN CONTROL CONTINUE PER ANESTHESIA POST-OP EXTUBATION WITH THROAT PAIN CEPACOL PRN SOFT DIET DVT PROPHYLAXIS WITH GRISELDA STOCKINGS PT EVAL PER NEUROSURGERY KIM CAN DC TODAY
[2019-04-12 08:23] LABS: HEMATOCRIT 33.1 % (32.4-45.2); HEMOGLOBIN 11.2 GM/dL (10.7-15.3); MCH 30.9 pg (25.7-33.7); MCHC 33.8 g/dl (32.0-36.0); MEAN CELL VOLUME 91.5 fl (80-96); MEAN PLT VOLUME 8.3 fl (7.5-11.1); PLATELET COUNT 222 K/MM3 (134-434); RBC 3.62 M/mm3 (3.60-5.2); RDW 13.9 % (11.6-15.6); WHITE BLOOD COUNT 10.5 K/mm3 (4.0-10.0)
--- NOTE | 2019-04-12 08:24 | SPA.POSTOP ---
- POST-OP NOTE POD #1 s/p L4/5 fusion No acute events since surgical procedure per RN notes. Patient resting comfortably. Pain management via prn meds. Pt states she is anxious to get out of monitored bed and go to 8th floor. Denies n/v/f/c, CP or SOB. Last Vital Signs Temp Pulse Resp BP Pulse Ox 99.0 F 69 20 129/74 95 04/12/19 06:00 04/12/19 06:00 04/12/19 06:00 04/12/19 06:00 04/11/19 20:44 Physical Exam General: No acute distress. Pulm: breathing comfortably Cor: Regular rhythm Back: Incision is clean with no erythema or discharge, drain in place with serosanguinous drainage. Output: 70ml Abd: Soft. Non-tender. No distention LE: Soft, non-tender bilat. SCD's bilat. no weakness or numbness Problem List - Problems (1) S/P lumbar fusion Assessment/Plan: Plan -pt appears to be doing well, pt should be able to be transferred to floor this afternoon -pain management -PT -DVT ppx Case discussed with Dr. Doyle, who agrees with plan Code(s): Z98.1 - ARTHRODESIS STATUS
[2019-04-12] MEDS ORDERED: oxyCODONE HCL 5 MG TABLET PO ONE ×2 (08:45→09:15)
[2019-04-12] MEDS ORDERED: ACETAMINOPHEN 325 MG TABLET (FP) PO ONE ×2 (08:45→09:15)
[2019-04-12 08:50] LABS: BLOOD UREA NITROGEN 8.5 mg/dL (7-18); CALCIUM 8.2 mg/dL (8.5-10.1); CREATININE 0.8 mg/dL (0.55-1.3)
[2019-04-12] MEDS ORDERED: ceFAZolin SODIUM 1 GM VIAL ONE (09:45)
[2019-04-12] MEDS ORDERED: DEXTROSE 5%-WATER - 50 ML IVPB ONE (09:45)
[2019-04-12] MEDS: oxyCODONE HCL 10 MG SUSTAINED ACTING TABLET PO SCH ×3 (09:52→21:55)
[2019-04-12] MEDS: RANITIDINE HCL 150 MG TABLET (FP) PO SCH (09:52)
[2019-04-12] MEDS ORDERED: FOLIC ACID 1 MG TABLET (FP) PO SCH (10:00)
[2019-04-12] MEDS ORDERED: FERROUS SO4 325 MG TABLET (FP) PO SCH (10:00)
[2019-04-12] MEDS: HEPARIN NA (PORCINE) 5,000 UNITS/ML 1ML VIAL SQ SCH ×2 (10:01→17:25)
[2019-04-12] MEDS: ONDANSETRON 4 MG/2 ML VIAL IVPUSH PRN ×2 (11:37→17:21)
[2019-04-12] MEDS ORDERED: ACETAMINOPHEN 325 MG TABLET (FP) PO SCH (12:00)
[2019-04-12] MEDS ORDERED: oxyCODONE HCL 5 MG TABLET PO PRN (12:12)
[2019-04-12] MEDS: LACTATED RINGERS SOLUTION 1,000 ML/1,000 ML INFUS.BAG IV SCH (12:31)
[2019-04-12] MEDS: oxyCODONE HCL 5 MG TABLET PO PRN (14:06)
[2019-04-12] MEDS ORDERED: ERGOCALCIFEROL (VIT D2) 50,000 UNIT (1.25 MG) CAPSULE PO ONE (16:15)
[2019-04-12] MEDS: ACETAMINOPHEN 325 MG TABLET (FP) PO SCH (17:22)
[2019-04-13] MEDS: ACETAMINOPHEN 325 MG TABLET (FP) PO SCH ×5 (00:24→23:13)
[2019-04-13] MEDS: oxyCODONE HCL 5 MG TABLET PO PRN ×5 (01:27→23:13)
[2019-04-13] MEDS: ONDANSETRON 4 MG/2 ML VIAL IVPUSH PRN ×2 (01:28→06:13)
[2019-04-13] MEDS: LACTATED RINGERS SOLUTION 1,000 ML/1,000 ML INFUS.BAG IV SCH (02:03)
[2019-04-13] MEDS: HEPARIN NA (PORCINE) 5,000 UNITS/ML 1ML VIAL SQ SCH ×3 (02:25→17:10)
[2019-04-13] MEDS ORDERED: BENZOCAINE/MENTH/CETYLPYRD CL 1 EACH LOZENGE MM PRN (02:56)
[2019-04-13] MEDS ORDERED: NALOXONE HCL 0.4 MG/ML VIAL IVPUSH PRN (02:56)
[2019-04-13] MEDS ORDERED: SUMAtriptan SUCCINATE 25 MG TABLET PO PRN (02:56)
[2019-04-13] MEDS ORDERED: diphenhydrAMINE HCL 25 MG CAPSULE (FP) PO PRN (02:56)
[2019-04-13] MEDS ORDERED: ERGOCALCIFEROL (VIT D2) 50,000 UNIT (1.25 MG) CAPSULE PO SCH (02:56)
[2019-04-13] MEDS ORDERED: oxyCODONE HCL 5 MG TABLET PO PRN (02:56)
[2019-04-13] MEDS: DOCUSATE SODIUM 100 MG CAPSULE (FP) PO SCH ×3 (06:05→21:16)
--- NOTE | 2019-04-13 08:26 | SPA.POSTOP ---
- POST-OP NOTE POD #2 s/p L4/5 PLIF Alert. Supine in bed with HOB at 30 degrees. C/o Incisional tenderness but well controlled. Received preop Exparel block by Dem[facility] followed by [facility]. She has gotten OOB and ambulated w/ assist to the bathroom and voiding spontaneously. Denies n/v/f/c, CP, palpitations, SOB or VILLASENOR. Last Vital Signs Temp Pulse Resp BP Pulse Ox 98.9 F 93 H 20 144/77 96 04/13/19 06:00 04/13/19 06:00 04/13/19 06:00 04/13/19 06:00 04/12/19 13:00 INOCENCIO Output 24hrs 04/12/19 04/12/19 04/13/19 06:00 23:46 06:00 INOCENCIO 70 30 50 General: No acute distress. Pulm: CTA bilat Cor: RRR Abd: Soft. Non-tender. No distention Back: Dressing c/d/i. No palpable hematoma. INOCENCIO on bulb suction (thinning out) Neuro: GMNVI bilat LE: Soft, non-tender bilat. SCD's bilat. Problem List - Problems (1) S/P lumbar fusion Assessment/Plan: POD #2 s/p L4/5 PLIF Anasthesia for continued pain management DVT PPX via bilat SCDs Incentive Spirometer Case Management Monitor INOCENCIO output and record q shift Regular diet OOB and ambulate PT Wear your TLSO brace when OOB to chair and or ambulating Above plan discussed with Dr. Doyle and agrees. Code(s): Z98.1 - ARTHRODESIS STATUS Visit type - Case Type Case Type: Scheduled - New patient This patient is new to me today: Yes Date on this admission: 04/13/19
--- NOTE | 2019-04-13 09:06 | PN ---
Progress Note, Physician History of Present Illness: BACK PAIN DISCOFORT-"NOT PAIN" FEELING WHEN BREATHING - Current Medication List Current Medications: Active Medications Acetaminophen (Tylenol -) 650 mg PO Q6HPO [facility] Last Admin: 04/13/19 06:03 Dose: 650 mg Benzocaine/Menthol (Cepacol Lozenge -) 1 each MM Q2H PRN PRN Reason: SORE THROAT Diphenhydramine HCl (Benadryl Injection -) 25 mg IVPUSH ONCE PRN PRN Reason: FOR ITCHING Diphenhydramine HCl (Benadryl -) 25 mg PO Q6H PRN PRN Reason: FOR ITCHING Docusate Sodium (Colace -) 100 mg PO TID [facility] Last Admin: 04/13/19 06:05 Dose: 100 mg Ergocalciferol (Drisdol -) 50,000 unit PO Mo [facility] Last Admin: 04/13/19 06:05 Dose: Not Given Ferrous Sulfate (Feosol -) 325 mg PO DAILY [facility] Folic Acid (Folic Acid -) 1 mg PO DAILY [facility] Heparin Sodium (Porcine) (Heparin -) 5,000 unit SQ Q8H-IV [facility] Lactated Ringer's (Lactated Ringers Solution) 1,000 ml in 1,000 mls @ 125 mls/ hr IV ASDIR [facility] Last Admin: 04/13/19 02:03 Dose: 125 mls/hr Naloxone HCl (Narcan -) 0.4 mg IVPUSH ONCE PRN PRN Reason: Sedation Ondansetron HCl (Zofran Injection) 4 mg IVPUSH Q6H PRN PRN Reason: NAUSEA Last Admin: 04/13/19 06:13 Dose: 4 mg Oxycodone HCl (Roxicodone -) 5 mg PO Q3H PRN PRN Reason: Mild Pain 1-3 Oxycodone HCl (Roxicodone -) 10 mg PO Q3H PRN PRN Reason: Moderate Pain 4-6 Last Admin: 04/13/19 06:01 Dose: 10 mg Oxycodone HCl (Oxycontin -) 10 mg PO BID [facility] Ranitidine HCl (Zantac -) 150 mg PO DAILY [facility] Sumatriptan Succinate (Imitrex -) 25 mg PO DAILY PRN PRN Reason: HEADACHE - Objective Vital Signs: Vital Signs Temperature 98.9 F 04/13/19 06:00 Pulse Rate 93 H 04/13/19 06:00 Respiratory Rate 20 04/13/19 06:00 Blood Pressure 144/77 04/13/19 06:00 O2 Sat by Pulse Oximetry (%) 96 04/12/19 13:00 Cardiovascular: Yes: Regular Rate and Rhythm Respiratory: Yes: Regular, CTA Bilaterally Gastrointestinal: Yes: Normal Bowel Sounds, Soft Labs: CBC, BMP 04/12/19 05:36 04/12/19 05:36 Problem List - Problems (1) Atypical chest pain Assessment/Plan: FOLLOW LABS EKG AND CXR Code(s): R07.89 - OTHER CHEST PAIN (2) S/P lumbar fusion Assessment/Plan: PAIN CONTROL PT PER NS Code(s): Z98.1 - ARTHRODESIS STATUS
[2019-04-13] MEDS: oxyCODONE HCL 10 MG SUSTAINED ACTING TABLET PO SCH ×2 (10:02→21:15)
[2019-04-13] MEDS: RANITIDINE HCL 150 MG TABLET (FP) PO SCH (10:03)
[2019-04-13] MEDS: FERROUS SO4 325 MG TABLET (FP) PO SCH (10:03)
[2019-04-13] MEDS: FOLIC ACID 1 MG TABLET (FP) PO SCH (10:03)
--- NOTE | 2019-04-13 11:27 | PN ---
Progress Note (short form) - Note Progress Note: Post op day#2.S/p L4-L5 Decompression with fusion under GA with intrathecal duramorph uneventful.Patient stable.No any anesthesia related problem.Patient Dc from the anesthesia care.
[2019-04-13] MEDS ORDERED: DEXTROSE 5%-WATER - 50 ML IVPB ONE ×2 (12:34→19:57)
[2019-04-13] MEDS ORDERED: ceFAZolin SODIUM 1 GM VIAL ONE ×2 (12:34→19:57)
[2019-04-13] MEDS: CEFAZOLIN 1 GM in DEXTROSE 5%-WATER - 50 ML IVPB SCH ×2 (12:36→20:08)
[2019-04-13 13:49] LABS: BASO % 0.3 % (0-2.0); EOS % 3.3 % (0-4.5); HEMATOCRIT 32.6 % (32.4-45.2); HEMOGLOBIN 11.1 GM/dL (10.7-15.3); LYMPH % 28.8 % (8-40); MCH 30.7 pg (25.7-33.7); MEAN CELL VOLUME 90.4 fl (80-96); MEAN PLT VOLUME 7.8 fl (7.5-11.1); MONO % 8.2 % (3.8-10.2); NEUT % 59.4 % (42.8-82.8); PLATELET COUNT 229 K/MM3 (134-434); RBC 3.61 M/mm3 (3.60-5.2); RDW 13.7 % (11.6-15.6); WHITE BLOOD COUNT 9.4 K/mm3 (4.0-10.0)
[2019-04-13 14:13] LABS: ALK PHOS 86 U/L (45-117); ANION GAP 4 MMOL/L (8-16); BILIRUBIN,TOTAL 0.4 mg/dL (0.2-1); BLOOD UREA NITROGEN 4.4 mg/dL (7-18); CALCIUM 8.2 mg/dL (8.5-10.1); CHLORIDE 109 mmol/L (98-107); CO2 27 mmol/L (21-32); CREATININE 0.8 mg/dL (0.55-1.3); GLUCOSE,RANDOM 112 mg/dL (74-106); POTASSIUM 3.8 mmol/L (3.5-5.1); SGOT/AST 56 U/L (15-37); SGPT/ALT 83 U/L (13-61); SODIUM 140 mmol/L (136-145); TOT PROT 5.6 g/dl (6.4-8.2)
[2019-04-14] MEDS: HEPARIN NA (PORCINE) 5,000 UNITS/ML 1ML VIAL SQ SCH ×3 (01:30→17:25)
[2019-04-14] MEDS ORDERED: ceFAZolin SODIUM 1 GM VIAL ONE ×2 (03:56→09:20)
[2019-04-14] MEDS ORDERED: DEXTROSE 5%-WATER - 50 ML IVPB ONE ×2 (03:57→09:20)
[2019-04-14] MEDS: oxyCODONE HCL 5 MG TABLET PO PRN ×4 (04:09→23:35)
[2019-04-14] MEDS: CEFAZOLIN 1 GM in DEXTROSE 5%-WATER - 50 ML IVPB SCH (04:10)
[2019-04-14] MEDS: ACETAMINOPHEN 325 MG TABLET (FP) PO SCH ×3 (05:40→17:25)
[2019-04-14] MEDS: DOCUSATE SODIUM 100 MG CAPSULE (FP) PO SCH ×3 (05:41→21:58)
[2019-04-14] MEDS: ONDANSETRON 4 MG/2 ML VIAL IVPUSH PRN ×2 (08:57→15:26)
[2019-04-14] MEDS: FOLIC ACID 1 MG TABLET (FP) PO SCH (09:22)
[2019-04-14] MEDS: RANITIDINE HCL 150 MG TABLET (FP) PO SCH (09:22)
[2019-04-14] MEDS: FERROUS SO4 325 MG TABLET (FP) PO SCH (09:23)
[2019-04-14] MEDS: oxyCODONE HCL 10 MG SUSTAINED ACTING TABLET PO SCH ×2 (09:23→21:58)
--- NOTE | 2019-04-14 10:19 | EKG ---
Test Reason : Blood Pressure : / mmHG Vent. Rate : 075 BPM Atrial Rate : 075 BPM P-R Int : 144 ms QRS Dur : 086 ms QT Int : 398 ms P-R-T Axes : 035 005 009 degrees QTc Int : 444 ms NORMAL SINUS RHYTHM NONSPECIFIC T WAVE ABNORMALITY Confirmed by ALISTAIR WILCOX MD ([id number]) on 04/14/2019 10:18:57 AM Referred By: JANINE CARRION,FLORECITAABI Confirmed By:ALISTAIR WILCOX MD
[2019-04-14] MEDS: LACTATED RINGERS SOLUTION 1,000 ML/1,000 ML INFUS.BAG IV SCH (13:44)
--- NOTE | 2019-04-14 18:09 | PN ---
Progress Note, Physician Chief Complaint: Low back pain History of Present Illness: S/P L4-L5 Decompression with fusion - Current Medication List Current Medications: Active Medications Acetaminophen (Tylenol -) 650 mg PO Q6HPO [facility] Last Admin: 04/14/19 17:25 Dose: 650 mg Benzocaine/Menthol (Cepacol Lozenge -) 1 each MM Q2H PRN PRN Reason: SORE THROAT Diphenhydramine HCl (Benadryl Injection -) 25 mg IVPUSH ONCE PRN PRN Reason: FOR ITCHING Diphenhydramine HCl (Benadryl -) 25 mg PO Q6H PRN PRN Reason: FOR ITCHING Docusate Sodium (Colace -) 100 mg PO TID [facility] Last Admin: 04/14/19 13:46 Dose: 100 mg Ergocalciferol (Drisdol -) 50,000 unit PO Mo [facility] Last Admin: 04/13/19 06:05 Dose: Not Given Ferrous Sulfate (Feosol -) 325 mg PO DAILY [facility] Last Admin: 04/14/19 09:23 Dose: 325 mg Folic Acid (Folic Acid -) 1 mg PO DAILY [facility] Last Admin: 04/14/19 09:22 Dose: 1 mg Heparin Sodium (Porcine) (Heparin -) 5,000 unit SQ Q8H-IV [facility] Last Admin: 04/14/19 17:25 Dose: 5,000 unit Lactated Ringer's (Lactated Ringers Solution) 1,000 ml in 1,000 mls @ 125 mls/ hr IV ASDIR [facility] Last Admin: 04/14/19 13:44 Dose: Not Given Naloxone HCl (Narcan -) 0.4 mg IVPUSH ONCE PRN PRN Reason: Sedation Ondansetron HCl (Zofran Injection) 4 mg IVPUSH Q6H PRN PRN Reason: NAUSEA Last Admin: 04/14/19 15:26 Dose: 4 mg Oxycodone HCl (Roxicodone -) 5 mg PO Q3H PRN PRN Reason: Mild Pain 1-3 Oxycodone HCl (Roxicodone -) 10 mg PO Q3H PRN PRN Reason: Moderate Pain 4-6 Last Admin: 04/14/19 11:58 Dose: 10 mg Oxycodone HCl (Oxycontin -) 10 mg PO BID [facility] Last Admin: 04/14/19 09:23 Dose: 10 mg Ranitidine HCl (Zantac -) 150 mg PO DAILY [facility] Last Admin: 04/14/19 09:22 Dose: 150 mg Sumatriptan Succinate (Imitrex -) 25 mg PO DAILY PRN PRN Reason: HEADACHE - Objective Vital Signs: Vital Signs Temperature 98.1 F 04/14/19 14:00 Pulse Rate 65 04/14/19 14:00 Respiratory Rate 20 04/14/19 14:00 Blood Pressure 138/82 04/14/19 14:00 O2 Sat by Pulse Oximetry (%) 98 04/14/19 09:00 Constitutional: Yes: Well Nourished, No Distress, Calm, Obese Cardiovascular: Yes: Regular Rate and Rhythm Respiratory: Yes: Regular Gastrointestinal: Yes: Normal Bowel Sounds, Soft, Abdomen, Obese Musculoskeletal: Yes: Back Pain Extremities: Yes: WNL Edema: No Peripheral Pulses WNL: Yes Wound/Incision: Yes: Dressing Dry and Intact Neurological: Yes: Alert, Oriented Psychiatric: Yes: Alert, Oriented Labs: CBC, BMP 04/13/19 13:16 04/13/19 13:16 Problem List - Problems (1) S/P lumbar laminectomy Assessment/Plan: -NS consult -Physical therapy -Pain management -refuses SNF, wants to go home Code(s): Z98.890 - OTHER SPECIFIED POSTPROCEDURAL STATES (2) Elevated liver enzymes Assessment/Plan: -Repeat labs in AM -[place] abd MRI normal in 2016 Code(s): R74.8 - ABNORMAL LEVELS OF OTHER SERUM ENZYMES Assessment/Plan see problem list
[2019-04-14] MEDS ORDERED: PT OWN MED DRAWER 7, Y5N ONE (18:20)
[2019-04-14] MEDS: POLYETHYLENE GLYCOL 3350 119 GM BTL PO SCH ×2 (19:20→19:21)
[2019-04-14] MEDS: GABAPENTIN 300 MG CAPSULE (FP) PO SCH (21:58)
[2019-04-15] MEDS: ACETAMINOPHEN 325 MG TABLET (FP) PO SCH ×3 (00:05→12:19)
[2019-04-15] MEDS: HEPARIN NA (PORCINE) 5,000 UNITS/ML 1ML VIAL SQ SCH ×2 (02:33→09:42)
[2019-04-15] MEDS: oxyCODONE HCL 5 MG TABLET PO PRN ×4 (02:42→16:20)
[2019-04-15] MEDS: GABAPENTIN 300 MG CAPSULE (FP) PO SCH ×2 (06:01→15:37)
[2019-04-15] MEDS: DOCUSATE SODIUM 100 MG CAPSULE (FP) PO SCH ×2 (06:01→15:37)
[2019-04-15 07:11] LABS: BASO % 0.6 % (0-2.0); EOS % 6.7 % (0-4.5); HEMATOCRIT 34.6 % (32.4-45.2); HEMOGLOBIN 11.7 GM/dL (10.7-15.3); LYMPH % 37.9 % (8-40); MCH 30.6 pg (25.7-33.7); MCHC 33.8 g/dl (32.0-36.0); MEAN CELL VOLUME 90.4 fl (80-96); MEAN PLT VOLUME 7.5 fl (7.5-11.1); MONO % 8.3 % (3.8-10.2); NEUT % 46.5 % (42.8-82.8); PLATELET COUNT 262 K/MM3 (134-434); RBC 3.82 M/mm3 (3.60-5.2); RDW 13.6 % (11.6-15.6); WHITE BLOOD COUNT 9.1 K/mm3 (4.0-10.0)
[2019-04-15 08:21] LABS: BILIRUBIN,TOTAL 0.4 mg/dL (0.2-1); BLOOD UREA NITROGEN 6.3 mg/dL (7-18); CALCIUM 8.4 mg/dL (8.5-10.1); CREATININE 0.9 mg/dL (0.55-1.3); TOT PROT 5.8 g/dl (6.4-8.2)
[2019-04-15] MEDS: RANITIDINE HCL 150 MG TABLET (FP) PO SCH (09:42)
[2019-04-15] MEDS: FERROUS SO4 325 MG TABLET (FP) PO SCH (09:42)
[2019-04-15] MEDS: FOLIC ACID 1 MG TABLET (FP) PO SCH (09:42)
[2019-04-15] MEDS: oxyCODONE HCL 10 MG SUSTAINED ACTING TABLET PO SCH (09:43)
[2019-04-15] MEDS: POLYETHYLENE GLYCOL 3350 119 GM BTL PO SCH (09:43)
[2019-04-15] MEDS: LACTATED RINGERS SOLUTION 1,000 ML/1,000 ML INFUS.BAG IV SCH (09:44)
--- NOTE | 2019-04-15 12:19 | PATH ---
Surgical Pathology Report Patient Name: ALEKSEY LEDESMA Med. Rec. #: [id number] /Age/Gender: 1970 (Age: 48) / F Account: [id number] Location: [facility] MED/SURG Taken: 04/11/2019 Received: 04/11/2019 Reported: 04/15/2019 Physicians: Bryson Stoddard M.D. Specimen(s) Received A: JUXTAFACET CYST B: DISC L4-L5 Clinical History Lumbar spondylosis Final Diagnosis A. JUXTAFACET CYST, EXCISION: PORTIONS OF FIBROCOLLAGENOUS TISSUE SHOWING GRANULATION TISSUE FORMATION AND FIBRINOHEMORRHAGIC EXUDATE, COMPATIBLE WITH JUXTAFACET CYST. B. L4-5 DISC, LAMINECTOMY: FIBROCARTILAGINOUS TISSUE, FIBROCOLLAGENOUS TISSUE, BONE AND SKELETAL MUSCLE. Electronically Signed Suly Smith M.D. Gross Description A. Received in formalin labeled "juxtafacet cyst," is a 1.5 x 0.9 x 0.3 cm aggregate of pulliam-pink tissue fragments, possibly consistent with a cyst. The specimen is submitted in toto in one cassette. B. Received in formalin labeled "L4-5 disc," is a 1.7 x 0.9 x 0.5 cm pulliam-pink portion of fibrocartilaginous tissue. The specimen is bisected and entirely submitted in one cassette. /04/11/201904/11/2019
--- NOTE | 2019-04-15 12:30 | OP ---
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 L4-5 Transpedicular approach. 2. L4-5 Laminectomy for stenosis. 3. Resection of Epidural, non-neoplastic mass (juxtafacet cyst). 4. Microdissection. 5. Interbody Cage L4-5. 6. Interbody arthrodesis L4-5. 7. Posterior/Lateral arthodesis L4-5. 8. L4-5 Posterior Instrumentation. 9. Local autograft. 10. Bilateral soft tissue advancement flaps (50cm) Implants: as dictated Post-Operative Diagnosis: Same as Pre-op Surgeon: Bryson Doyle Adult Care Provider: Gisela Costa Anesthesiologist/BRUSH STAINER: Rui David Anesthesia: General, Local Specimens Removed: 1. Juxtafacet cyst. 2. L4-5 HNP Estimated Blood Loss (mls): 200 (ml) Drains & Tubes with Location: INOCENCIO in place Drains, Volume Out (mls): 900 (ml yellow urine) Fluid Volume Replaced (mls): 1,600 (ml) Operative Report Dictated: Yes
--- NOTE | 2019-04-15 12:31 | SPA.POSTOP ---
- POST-OP NOTE POD s/p L4/5 PLIF No acute events since surgical procedure per RN notes. Patient resting comfortably. Pain management via prn meds. Denies n/v/f/c, CP or SOB. Last Vital Signs Temp Pulse Resp BP Pulse Ox 98.4 F 88 20 137/90 98 04/15/19 06:00 04/15/19 06:00 04/15/19 06:00 04/15/19 06:00 04/14/19 21:00 Physical Exam General: No acute distress. Pulm: breathing comfortably Cor: Regular rhythm BACK: Incision clean with no erythema or discharge, drain in place with serosanguinous drainage. Output: 55ml LE: Soft, non-tender bilat. SCD's bilat. Problem List - Problems (1) S/P lumbar fusion Assessment/Plan: Plan -Drain was pulled at bedside without incident -pt is cleared for discharge home from neurosurgery -pt should follow up with Dr. Doyle in the office in 2 weeks. Case discussed with Dr. Doyle, who agrees with plan Code(s): Z98.1 - ARTHRODESIS STATUS
--- NOTE | 2019-04-15 12:40 | SURG ---
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 L4-5 Transpedicular approach. 2. L4-5 Laminectomy for stenosis. 3. Resection of Epidural, non-neoplastic mass (juxtafacet cyst). 4. Microdissection. 5. Interbody Cage L4-5. 6. Interbody arthrodesis L4-5. 7. Posterior/Lateral arthodesis L4-5. 8. L4-5 Posterior Instrumentation. 9. Local autograft. 10. Bilateral soft tissue advancement flaps (50cm) I was present for the entirety of the operative procedure. For further detail, please refer to operative report.
--- NOTE | 2019-04-15 15:49 | DS ---
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 L4-5 Transpedicular approach. 2. L4-5 Laminectomy for stenosis. 3. Resection of Epidural, non-neoplastic mass (juxtafacet cyst). 4. Microdissection. 5. Interbody Cage L4-5. 6. Interbody arthrodesis L4-5. 7. Posterior/Lateral arthodesis L4-5. 8. L4-5 Posterior Instrumentation. 9. Local autograft. 10. Bilateral soft tissue advancement flaps (50cm) Implants: as dictated Post-Operative Diagnosis: Same as Pre-op Surgeon: Bryson Doyle Emt P: Gisela Costa Constitutional: Yes: Well Nourished, No Distress, Calm Cardiovascular: Yes: Regular Rate and Rhythm Respiratory: Yes: Regular Gastrointestinal: Yes: Normal Bowel Sounds, Soft Musculoskeletal: Yes: Back Pain Extremities: Yes: WNL Edema: No Peripheral Pulses WNL: Yes Wound/Incision: Yes: Dressing Dry and Intact Neurological: Yes: Alert, Oriented Psychiatric: Yes: Alert, Oriented Labs: CBC, BMP 04/15/19 06:25 04/15/19 06:25 Discharge Summary Reason For Visit: LUMBAR SPONDYLOSIS Current Active Problems Atypical chest pain (Acute) S/P lumbar fusion (Acute) S/P lumbar laminectomy (Acute) Hospital Course: Laboratory Last Values WBC 9.1 K/mm3 (4.0-10.0) 04/15/19 06:25 RBC 3.82 M/mm3 (3.60-5.2) 04/15/19 06:25 Hgb 11.7 GM/dL (10.7-15.3) 04/15/19 06:25 Hct 34.6 % (32.4-45.2) 04/15/19 06:25 MCV 90.4 fl (80-96) 04/15/19 06:25 MCH 30.6 pg (25.7-33.7) 04/15/19 06:25 MCHC 33.8 g/dl (32.0-36.0) 04/15/19 06:25 RDW 13.6 % (11.6-15.6) 04/15/19 06:25 Plt Count 262 K/MM3 (134-434) 04/15/19 06:25 MPV 7.5 fl (7.5-11.1) 04/15/19 06:25 Absolute Neuts (auto) 4.2 K/mm3 (1.5-8.0) 04/15/19 06:25 Neutrophils % 46.5 % (42.8-82.8) D 04/15/19 06:25 Lymphocytes % 37.9 % (8-40) D 04/15/19 06:25 Monocytes % 8.3 % (3.8-10.2) 04/15/19 06:25 Eosinophils % 6.7 % (0-4.5) H D 04/15/19 06:25 Basophils % 0.6 % (0-2.0) 04/15/19 06:25 Nucleated RBC % 0 % (0-0) 04/15/19 06:25 Sodium 140 mmol/L (136-145) 04/15/19 06:25 Potassium 4.0 mmol/L (3.5-5.1) 04/15/19 06:25 Chloride 107 mmol/L (98-107) 04/15/19 06:25 Carbon Dioxide 26 mmol/L (21-32) 04/15/19 06:25 Anion Gap 7 MMOL/L (8-16) L 04/15/19 06:25 BUN 6.3 mg/dL (7-18) L 04/15/19 06:25 Creatinine 0.9 mg/dL (0.55-1.3) 04/15/19 06:25 Est GFR (CKD-EPI)AfAm 87.02 04/15/19 06:25 Est GFR (CKD-EPI)NonAf 75.08 04/15/19 06:25 Random Glucose 90 mg/dL (74-106) 04/15/19 06:25 Calcium 8.4 mg/dL (8.5-10.1) L 04/15/19 06:25 Ferritin 42.3 ng/ml (8-388) 04/15/19 06:25 Total Bilirubin 0.4 mg/dL (0.2-1) 04/15/19 06:25 AST 51 U/L (15-37) H 04/15/19 06:25 ALT 93 U/L (13-61) H 04/15/19 06:25 Alkaline Phosphatase 114 U/L (45-117) 04/15/19 06:25 Creatine Kinase 172 U/L (26-192) 04/13/19 13:16 Creatine Kinase Index 0.5 % (0.0-5.0) 04/13/19 13:16 CK-MB (CK-2) < 1.0 ng/mL (0.5-3.6) 04/13/19 13:16 Troponin I < 0.02 ng/ml (0.00-0.05) 04/13/19 13:16 Total Protein 5.8 g/dl (6.4-8.2) L 04/15/19 06:25 Albumin 3.0 g/dl (3.4-5.0) L 04/15/19 06:25 Serum Folate 37 ng/mL (3.1-17.5) H 04/15/19 06:25 Serum , Qual Negative 04/11/19 06:17 Blood Type O POSITIVE 04/11/19 06:17 Antibody Screen Negative 04/11/19 06:17 Vital Signs Temp 98.9 F 04/15/19 10:00 Pulse 93 H 04/15/19 10:00 Resp 20 04/15/19 10:00 BP 126/72 04/15/19 10:00 Pulse Ox 98 04/14/19 21:00 Intake & Output 04/14/19 04/15/19 04/15/19 23:59 11:59 23:59 Intake Total 50 200 Output Total 30 Balance 20 200 Intake: IVPB 50 Oral 200 Output: Drainage 30 Posterior Back 30 Other: Voiding Method Toilet Toilet # Unmeasured Voids Void 3 2 Bowel Movement No No # Bowel Movements 0 Condition: Stable - Instructions Diet, Activity, Other Instructions: Post Operative Instructions Physical Activity Resume your normal everyday activity as tolerated. No heavy lifting or exercise until seen by your surgeon. You may walk unlimited amounts and climb stairs. You may resume driving the car when you feel safe and comfortable behind the wheel and you are no longer wearing your brace. Do not operate a vehicle while taking narcotic medication. Wound Care Keep your incision clean, dry and covered at all times. Apply an occlusive dressing (Saran wrap or Tegaderm) when showering to avoid getting your incision wet. Do not submerge incision or apply ointments or creams. No bath tubs, pools, hot tubs etc until cleared by your surgeon. Diet There are no dietary restrictions. Eat healthy, high-fiber foods. Drink 6-8 glasses of liquid each day. This will assist in keeping your bowels regular. Pain Management You may take Tylenol or acetaminophen. Any pain prescription medication ordered should be taken as prescribed for moderate to severe pain. Avoid any ibuprofen (Motrin, Advil, Aleve, Toradol, etc) for 3 months unless otherwise discussed with your surgeon. Call Dr Stoddard for any of the following: Severe pain not relieved by medication Fever of 101 or higher Excessive bleeding or drainage on dressing Inability to urinate Any chest pain or shortness of breath, seek Emergency Care. Call the office to confirm a post-operative appointment for 2-3 weeks post-op Bryson Doyle MD [facility] [address] [place] [address] Disposition: HOME - Home Medications Comprehensive Discharge Medication List: Ambulatory Orders Ergocalciferol (Vitamin D2) [Vitamin D2] 50,000 unit PO WEEKLY 02/23/19 Ranitidine [Zantac -] 150 mg PO DAILY PRN tablet 02/28/19 Sumatriptan Succinate [Imitrex -] 25 mg PO DAILY PRN tablet 02/28/19 Sennosides/Docusate Sodium [Pericolace -] 2 tablet PO HS #60 tablet 03/02/19 Acetaminophen [Tylenol .Regular Strength -] 650 mg PO Q6HPO tablet 04/15/19 Gabapentin [Neurontin -] 300 mg PO TID #90 capsule 04/15/19 Ondansetron [Zofran *Odt*] 8 mg SL TID PRN #30 od.tablet 04/15/19 oxyCODONE HCL [Roxicodone -] 1 - 2 tab PO Q6H PRN 5 Days #40 tablet MDD 8 oxyCODONE SR [Oxycontin] 10 mg PO BID #60 tab.er.12h MDD 2 04/15/19
[2019-04-15 15:51] VITALS: BP 133/67; PULSE 92; TEMP 98.7
[2019-04-16 04:08] LABS: SERUM IRON SATURATION 10 % (15-55); TOTAL IRON BINDING CAPACITY 291 ug/dL (250-450)
== END 2019-04-15 17:38 | disposition home or self-care (01) | DRG 455 ==
LOC: JSAMEDAYSX 06:05 → J4W 14:49 → J8W 04-12 20:09
PROVIDERS: ADMIT Family Medicine; ATTEND Family Medicine
PROC: 0SG00AJ Fusion of Lumbar Vertebral Joint with Interbody Fusion Device, Posterior Approach, Anterior Column, Open Approach (ICD-10-PCS; 2019-04-11)
PROC: 0SG0071 Fusion of Lumbar Vertebral Joint with Autologous Tissue Substitute, Posterior Approach, Posterior Column, Open Approach (ICD-10-PCS; 2019-04-11)
PROC: 00BY0ZZ Excision of Lumbar Spinal Cord, Open Approach (ICD-10-PCS; 2019-04-11)
PROC: 0SB20ZZ Excision of Lumbar Vertebral Disc, Open Approach (ICD-10-PCS; 2019-04-11)
PROC: 0JX70ZB Transfer Back Subcutaneous Tissue and Fascia with Skin and Subcutaneous Tissue, Open Approach (ICD-10-PCS; 2019-04-11)
PROC: B01BZZZ Fluoroscopy of Spinal Cord (ICD-10-PCS; 2019-04-11)
PROC: 00NY0ZZ Release Lumbar Spinal Cord, Open Approach (ICD-10-PCS; principal; 2019-04-11 08:00)
DX: M51.26 Other intervertebral disc displacement, lumbar region (principal); M48.061 Spinal stenosis, lumbar region without neurogenic claudication; R07.89 Other chest pain; E66.9 Obesity, unspecified; Z68.34 Body mass index [BMI] 34.0-34.9, adult
CPT/HCPCS: 36415; 71045-TC-FY; 72131-TC; 76000-TC-FY; 80048; 80053; 82550; 82553; 82728; 82746; 83540; 83550; 84484; 84703; 85025; 85027; 86850; 86900; 86901; 88304-TC; 88305-TC; 93005; 93010; 94760; 97116-GP; 97161-GP; J0131; J1644

== ENCOUNTER 2020-09-21 05:59 | Day surgery (SDC) | payer OTHER ==
[2020-09-20 08:23] VITALS: BMI 37.5
[2020-09-21] MEDS ORDERED: ceFAZolin SODIUM 1 GM VIAL ONE (13:30)
[2020-09-21] MEDS ORDERED: PROPOFOL 20 ML ONE ×2 (13:31)
[2020-09-21] MEDS ORDERED: MIDAZOLAM HCL 2 MG/2 ML SINGLE DOSE VIAL ONE ×3 (13:31→15:17)
[2020-09-21] MEDS ORDERED: SUCCINYLCHOLINE CHLORIDE 200 MG/10 ML SYRINGE ONE (13:31)
[2020-09-21] MEDS ORDERED: ceFAZolin 2 GRAM PREMIX BAG IVPB ONE (13:39)
[2020-09-21] MEDS ORDERED: LIDOCAINE HCL/PF 2% SDV 5ML VIAL PNB ONE (13:43)
[2020-09-21] MEDS ORDERED: LIDOCAINE 1% P/F 10 MG/ML VIAL INF ONE (13:43)
[2020-09-21] MEDS ORDERED: METOPROLOL TARTRATE 5 MG/5 ML VIAL ONE (15:05)
[2020-09-21] MEDS ORDERED: KETOROLAC TROMETHAMINE 30 MG/1 ML VIAL ONE (15:06)
[2020-09-21] MEDS ORDERED: oxyCODONE HCL 5 MG TABLET PO PRN ×2 (16:16)
[2020-09-21] MEDS ORDERED: ACETAMINOPHEN 500 MG TABLET (FP) PO PRN (16:16)
[2020-09-21] MEDS ORDERED: ONDANSETRON 4 MG/2 ML VIAL IVPUSH PRN (16:16)
[2020-09-21 16:33] VITALS: TEMP 98
[2020-09-21] MEDS ORDERED: ONDANSETRON 4 MG/2 ML VIAL ONE (17:21)
[2020-09-21] MEDS ORDERED: ONDANSETRON *ODT* 4 MG TABLET ONE (17:28)
[2020-09-21] MEDS ORDERED: ONDANSETRON *ODT* 4 MG TABLET SL ONE ×2 (17:28→17:35)
[2020-09-21 19:43] VITALS: BP 120/78; PULSE 90
== END 2020-09-21 19:15 | disposition home or self-care (01) ==
LOC: JASU-SURG 05:59
PROVIDERS: ATTEND Pain Medicine Pain Medicine
PROC: 00HU3MZ Insertion of Neurostimulator Lead into Spinal Canal, Percutaneous Approach (ICD-10-PCS; principal; 2020-09-21 12:00)
DX: G89.4 Chronic pain syndrome (principal); M96.1 Postlaminectomy syndrome, not elsewhere classified
CPT/HCPCS: 63650; C1897; 76000-TC-FY; Q0162

== ENCOUNTER 2021-01-04 11:31 | Day surgery (SDC) | payer OTHER ==
[2021-01-02 11:11] VITALS: BMI 38.4
[2021-01-04] MEDS ORDERED: LIDOCAINE 1%/EPI 1:100000 (20 ML MULTI DOSE VIAL) ONE (12:58)
[2021-01-04] MEDS ORDERED: THROMBIN (RECOMBINANT) 5,000 UNIT VIAL TP ONE (12:58)
[2021-01-04] MEDS ORDERED: fentaNYL CITRATE 250 MCG/5 ML VIAL ONE (13:03)
[2021-01-04] MEDS ORDERED: MIDAZOLAM HCL 2 MG/2 ML SINGLE DOSE VIAL ONE (13:04)
[2021-01-04] MEDS ORDERED: ROCURONIUM BROMIDE 50 MG/5 ML VIAL ONE (13:04)
[2021-01-04] MEDS ORDERED: PROPOFOL 20 ML ONE ×2 (13:04)
[2021-01-04] MEDS ORDERED: SCOPOLAMINE HYDROBROMIDE 1 PATCH PATCH.TD72 ONE (13:19)
[2021-01-04] MEDS ORDERED: GENTAMICIN SO4 80 MG/2 ML VIAL ONE (13:31)
[2021-01-04] MEDS ORDERED: ONDANSETRON 4 MG/2 ML VIAL IVPUSH PRN (13:35)
[2021-01-04] MEDS ORDERED: oxyCODONE HCL 5 MG TABLET PO PRN (13:35)
[2021-01-04] MEDS ORDERED: LACTATED RINGERS SOLUTION 1,000 ML IV SCH (13:45)
[2021-01-04] MEDS ORDERED: KETAMINE HCL 200 MG/20 ML VIAL ONE (14:26)
[2021-01-04] MEDS ORDERED: BUPIVACAINE LIPOSOME/PF (EXPAREL) 266 MG/20 ML VIAL ONE (15:25)
[2021-01-04] MEDS ORDERED: NEOSTIGMINE METHYLSULFATE 0.5 MG/1 ML - 10 ML MDV ONE (15:33)
[2021-01-04] MEDS ORDERED: oxyCODONE HCL 5 MG TABLET ONE (17:57)
[2021-01-04 19:57] VITALS: BP 122/71; PULSE 84; TEMP 97.9
== END 2021-01-04 19:55 | disposition home or self-care (01) ==
LOC: FASUSAT 11:31
PROVIDERS: ATTEND Neurological Surgery
PROC: 00HU0MZ Insertion of Neurostimulator Lead into Spinal Canal, Open Approach (ICD-10-PCS; 2021-01-04)
PROC: 0JH70MZ Insertion of Stimulator Generator into Back Subcutaneous Tissue and Fascia, Open Approach (ICD-10-PCS; principal; 2021-01-04 14:16)
DX: G89.29 Other chronic pain (principal); M96.1 Postlaminectomy syndrome, not elsewhere classified; M47.815 Spondylosis without myelopathy or radiculopathy, thoracolumbar region
CPT/HCPCS: 63650; 63655; 63685; C1767; C1778; 72070-TC-FY; 76000-TC-FY; 94760

== ENCOUNTER 2025-04-06 19:34 | Emergency (ER) | payer OTHER ==
[2025-04-06 19:45] VITALS: RESP 18; BMI 39.3
[2025-04-06 22:24] VITALS: BP 151/86; PULSE 62; TEMP 98.4
== END 2025-04-06 22:33 | disposition home or self-care (01) ==
LOC: JER 19:34
DX: S82.852A Displaced trimalleolar fracture of left lower leg, initial encounter for closed fracture (principal); W10.9XXA Fall (on) (from) unspecified stairs and steps, initial encounter; Y93.01 Activity, walking, marching and hiking
CPT/HCPCS: 73590-TC-LT-FY; 73610-TC-LT-FY; 99283-25

== ENCOUNTER 2025-04-11 10:47 | Day surgery (SDC) | payer OTHER ==
[2025-04-10 11:59] VITALS: BMI 39.3
[~2025-04-11 10:47] MED LIST: ONDANSETRON 4 MG/2 ML VIAL IVPUSH PRN; PROMETHAZINE HCL 25 MG/1 ML VIAL IVPB PRN
[2025-04-11] MEDS ORDERED: BUPIVACAINE HCL/PF 0.25% (2.5MG/ML) 10 ML VIAL ONE (12:42)
[2025-04-11] MEDS ORDERED: DEXAMETHASONE SOD PHOSPHATE 4 MG/1 ML VIAL ONE (13:01)
[2025-04-11] MEDS ORDERED: SCOPOLAMINE HYDROBROMIDE 1 PATCH PATCH.TD72 ONE (13:16)
[2025-04-11] MEDS ORDERED: KETOROLAC TROMETHAMINE 30 MG/1 ML VIAL ONE (15:14)
[2025-04-11] MEDS ORDERED: ONDANSETRON 4 MG/2 ML VIAL ONE ×2 (15:14→17:07)
[2025-04-11] MEDS: BUPIVACAINE HCL/PF 0.25% (2.5MG/ML) 10 ML VIAL IJ ONE (15:36)
[2025-04-11] MEDS ORDERED: PROMETHAZINE HCL 25 MG/1 ML VIAL IVPB PRN (16:11)
[2025-04-11] MEDS ORDERED: ACETAMINOPHEN 1000 MG/100 ML BAG IVPB PRN (16:13)
[2025-04-11] MEDS ORDERED: MAG HYDROX/AL HYDROX/SIMETH 30 ML UNIT-DOSE CUP PO PRN (16:15)
[2025-04-11] MEDS ORDERED: ONDANSETRON 4 MG/2 ML VIAL IVPUSH PRN (16:15)
[2025-04-11] MEDS: ACETAMINOPHEN 1000 MG/100 ML BAG IVPB ONE (16:17)
[2025-04-11] MEDS ORDERED: FENTANYL CITRATE/PF 50 MCG/ML VIAL ONE ×2 (16:54→17:07)
[2025-04-11] MEDS: ONDANSETRON 4 MG/2 ML VIAL IVPUSH PRN (17:09)
[2025-04-11] MEDS: LACTATED RINGERS SOLUTION 1,000 ML IV SCH ×3 (18:08→18:10)
[2025-04-11] MEDS: KETOROLAC TROMETHAMINE 30 MG/1 ML VIAL IVPUSH SCH (18:09)
[2025-04-11] MEDS: CEFAZOLIN SODIUM 2 GM in DEXTROSE 5%-WATER 100 ML IVPB SCH (21:32)
[2025-04-11] MEDS: GABAPENTIN 300 MG CAPSULE PO SCH (21:33)
[2025-04-11] MEDS: SENNOSIDES/DOCUSATE COMBO (SENNA PLUS) TABLET (UD) PO SCH (21:33)
[2025-04-11] MEDS: oxyCODONE HCL 10 MG SUSTAINED ACTING TABLET PO SCH (21:34)
[2025-04-11] MEDS ORDERED: PREGABALIN PO SCH (22:00)
[2025-04-12 08:05] LABS: MCHC 31.5 g/dl (32.2-35.5); MEAN CELL VOLUME 82.4 fl (79.4-94.8); MEAN PLT VOLUME 9.4 fl (9.4-12.3); RDW 16.7 % (12.3-16.6)
[2025-04-12 08:10] LABS: CO2 27.0 mmol/L (21-32); CREATININE 0.9 mg/dl (0.6-1.3); GLUCOSE,RANDOM 138.0 mg/dl (74-106)
[2025-04-12] MEDS ORDERED: ASPIRIN COATED 81 MG TABLET.EC PO SCH (10:00)
[2025-04-12] MEDS: ASPIRIN COATED 81 MG TABLET.EC PO SCH (10:04)
[2025-04-12] MEDS: PANTOPRAZOLE 40 MG TABLET PO SCH (10:04)
[2025-04-12] MEDS: MULTIVITAMINS (DAILY MVI) TABLET (FP) PO SCH (10:05)
[2025-04-12] MEDS: ROSUVASTATIN CA 10 MG TABLET PO SCH (10:05)
[2025-04-12] MEDS: CEFAZOLIN SODIUM 2 GM in DEXTROSE 5%-WATER 100 ML IVPB SCH (17:53)
[2025-04-12 22:42] VITALS: RESP 18
[2025-04-13 07:45] LABS: ABSOLUTE IMMATURE GRANULOCYTES 0.03 x10^3/uL (0.0-0.031); BASOPHILS # 0.04 x10^3/uL (0.01-0.08); EOSINOPHIL % 1.2 % (0.7-5.8); EOSINOPHILS # 0.17 x10^3/uL (0.04-0.36); MCHC 31.0 g/dl (32.2-35.5); MEAN CELL VOLUME 84.1 fl (79.4-94.8); MEAN PLT VOLUME 9.4 fl (9.4-12.3); MONOCYTE # 1.11 x10^3/uL (0.24-0.86); MONOCYTE % 8.0 % (4.7-12.5); RDW 17.3 % (12.3-16.6)
[2025-04-13 08:10] LABS: ALK PHOS 93.0 U/L (45-117); CO2 30.0 mmol/L (21-32); CREATININE 0.9 mg/dl (0.6-1.3); GLUCOSE,RANDOM 79.0 mg/dl (74-106); SGOT/AST 81.0 U/L (15-37); SGPT/ALT 70.0 U/L (7-52); TOT PROT 5.7 g/dl (6.4-8.2)
[2025-04-13 14:27] VITALS: BP 138/90; PULSE 78; TEMP 98.2
== END 2025-04-13 16:38 | disposition home or self-care (01) ==
LOC: FASU 10:47 → FASUSAT 10:47 → FM/S 17:34 → FASUSAT 04-13 16:38
PROVIDERS: ATTEND Orthopaedic Surgery Sports Medicine
PROC: 0QSH04Z Reposition Left Tibia with Internal Fixation Device, Open Approach (ICD-10-PCS; 2025-04-11)
PROC: 0QSK04Z Reposition Left Fibula with Internal Fixation Device, Open Approach (ICD-10-PCS; principal; 2025-04-11 13:30)
DX: S82.852A Displaced trimalleolar fracture of left lower leg, initial encounter for closed fracture (principal); X58.XXXA Exposure to other specified factors, initial encounter; Y92.9 Unspecified place or not applicable; Y93.9 Activity, unspecified
CPT/HCPCS: 27822; C1713; 36415; 73610-TC-LT-FY; 76705-TC; 80048; 80053; 85025; 85027; 94760; 97116-GP; 97162-GP